=== PATIENT | female | born 1995 | race Caucasian/White ===

== ENCOUNTER 2016-05-23 23:46 | Emergency (ER) | payer OTHER ==
[~2016-05-23] VITALS: Ht 162.6 cm; Wt 54.0 kg
[~2016-05-23 23:46] MED LIST: ZOLO20CO PO
[2016-05-24 00:32] VITALS: BP 121/89; PULSE 92; RESP 20; TEMP 98.2; O2SAT 100
[2016-05-24] MEDS ORDERED: SODIUM CHLORIDE 0.9% FLUSH 5 ML FLUSH IVF PRN (02:00)
[2016-05-24] MEDS ORDERED: oxyCODONE/ACETAMINOPHEN 5 MG/325 MG TAB PO ONE (02:00)
[2016-05-24] MEDS ORDERED: ALBUAER3 INH (03:04)
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
[2016-05-24] MEDS ORDERED: OCEA0.653 EACH NARE (03:53)
[2016-05-24 04:42] VITALS: BP 118/72
== END 2016-05-24 04:49 | disposition home or self-care (01) ==
LOC: PHED 23:46
DX: R05 Cough (principal); S60.221A Contusion of right hand, initial encounter; F41.8 Other specified anxiety disorders; J32.2 Chronic ethmoidal sinusitis; Y04.0XXA Assault by unarmed brawl or fight, initial encounter; Y93.9 Activity, unspecified; Y92.9 Unspecified place or not applicable; Y99.9 Unspecified external cause status
CPT/HCPCS: 70450; 70486; 71010; 72125; 87804

== ENCOUNTER 2016-06-10 19:04 | Emergency (ER) | payer OTHER ==
[~2016-06-10 19:04] MED LIST changes: +ALBUAER3 INH; +OCEA0.653 EACH NARE
[2016-06-10 19:05] VITALS: BP 190/90; PULSE 70; RESP 20; TEMP 97.4; O2SAT 94
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
[2016-06-11] MEDS ORDERED: SODIUM CHLOR 0.9% 1000 ML INJ 1,000 ML IV SCH (00:03)
[2016-06-11] MEDS ORDERED: SODIUM CHLORIDE 0.9% FLUSH 10 ML FLUSH IV FLUSH PRN (00:15)
[2016-06-11] MEDS ORDERED: ONDANSETRON HCL 4 MG/2 ML VIAL IVP ONE (00:15)
[2016-06-11] MEDS ORDERED: HYDROmorphone HCL PF 1 MG/ML VIAL IVS ONE ×2 (00:15)
[2016-06-11 00:29] VITALS: BP 127/77; PULSE 72; RESP 18; O2SAT 100
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
[2016-06-11 00:37] LABS: BASOPHIL # 0.1 TH/MM3 (0-0.2); BASOPHIL % 0.7 % (0.0-2.0); EOSINOPHIL % 0.4 % (0.0-4.0); HEMATOCRIT 42.3 % (35.0-46.0); HEMO FLAGS DIFF FINAL; LYMPH % 21.5 % (9.0-44.0); LYMPHOCYTE # 2.4 TH/MM3 (1.0-4.8); MEAN CELL VOLUME 86.3 FL (80.0-100.0); MEAN CORPUSCULAR HEMOGLOBIN 29.5 PG (27.0-34.0); MEAN CORPUSCULAR HGB CONC 34.1 % (32.0-36.0); MONO % 6.1 % (0.0-8.0); NEUT % 71.3 % (16.0-70.0); PLATELET COUNT 318 TH/MM3 (150-450); RED BLOOD COUNT 4.91 MIL/MM3 (4.00-5.30); WHITE BLOOD COUNT 11.1 TH/MM3 (4.0-11.0)
[2016-06-11 00:42] LABS: BACTERIA, URINE RARE /hpf; BLOOD, URINE NEG (NEG); COMMENT (UR) CULT NOT INDICATED; CULTURE IF INDICATED CULT NOT INDICATED; GLUCOSE,URINE NEG (NEG); KETONE, URINE 40 mg/dL (NEG); MUCUS URINE FEW /lpf (OCC); NITRITE,URINE NEG (NEG); PH, URINE 7.5 (5.0-8.5); SQUAMOUS EPITHELIAL CELL URINE 1 /hpf (0-5); URINE COLOR YELLOW (YELLW/STRAW)
[2016-06-11 00:46] LABS: AMPHETAMINE, URINE POS (NEG); BARBITURATES, URINE NEG (NEG); COCAINE, URINE NEG (NEG)
[2016-06-11 01:00] LABS: BICARBONATE 26.5 MEQ/L (21.0-32.0); POTASSIUM 3.9 MEQ/L (3.5-5.1)
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
[2016-06-11] MEDS ORDERED: ZOFR4TAB3 SL (01:15)
[2016-06-11] MEDS ORDERED: HYDR-3533 PO (01:15)
[2016-06-11 01:45] VITALS: BP 109/61
== END 2016-06-11 02:13 | disposition home or self-care (01) ==
LOC: NEPE 19:04
DX: H93.12 Tinnitus, left ear (principal); R11.2 Nausea with vomiting, unspecified; R51 Headache
CPT/HCPCS: 70480; 80048; 80307; 81001; 84703; 85025; 96361; 96374; 96375; 99284; J1170; J2405; J7030

== ENCOUNTER 2016-10-07 20:06 | Emergency (ER) | payer OTHER ==
[~2016-10-07] VITALS: Ht 165.1 cm; Wt 52.1 kg
[~2016-10-07 20:06] MED LIST changes: +HYDR-3533 PO; -OCEA0.653 EACH NARE; +ZOFR4TAB3 SL; -ZOLO20CO PO
[2016-10-07 20:09] VITALS: BP 132/67; PULSE 97; RESP 18; TEMP 98; O2SAT 99
[2016-10-07] MEDS ORDERED: SODIUM CHLOR 0.9% 1000 ML INJ 1,000 ML IV SCH (20:51)
--- NOTE | 2016-10-07 20:56 | PD ---
HPI Chief Complaint: GI Complaint Time Seen by Provider: 20:38 Travel History International Travel<30 days: No Contact w/Intl Traveler<30days: No Traveled to known affect area: No History of Present Illness HPI SINCE ABOUT 1AM TODAY N/V/D WITH ABD CRAMPING, GENERALIZED, 8/10 WHEN IT OCCURS. PT STATES THAT INITIALLY DIARRHEA WAS NORMAL STOOL COLOR THEN TURNED JELLY LIKE AND REDDISH AND NOW LAST BM WAS WATERY DARK LIKE COFFEE GROUND. PFSH Past Medical History Asthma: Yes Blood Disorders: No Anxiety: Yes Depression: Yes Heart Rhythm Problems: No Cardiovascular Problems: No Chest Pain: No Cystic Fibrosis: No Diabetes: Yes (hypoglycemia) Patient Takes Glucophage: No Diminished Hearing: No Gastrointestinal Disorders: No Headaches: No Hypertension: No Immunizations Current: Yes Migraines: No Seizures: No Sleep Apnea: No Tetanus Vaccination: < 5 Years Influenza Vaccination: No ?: Not LMP: 10/07/16 : 0 Past Surgical History Abdominal Surgery: No Appendectomy: No Cardiac Surgery: No Cholecystectomy: No Ear Surgery: No Endocrine Surgery: No Eye Surgery: No Genitourinary Surgery: No Gynecologic Surgery: No Neurologic Surgery: No Oral Surgery: No Thoracic Surgery: No Tonsillectomy: Yes Other Surgery: No Social History Alcohol Use: No Tobacco Use: No Substance Use: No Allergies-Medications (Allergen,Severity, Reaction): Coded Allergies: Morphine (Verified Allergy, Severe, HIVES AND ITCHING, 10/07/16) Penicillin (Verified Allergy, Intermediate, Hives, 10/07/16) Sulfa (Verified Adverse Reaction, Severe, HIVES, 10/07/16) Uncoded Allergies: [facility] (Adverse Reaction, Severe, Not a patient of mine, 06/22/11) Reported Meds & Prescriptions Reported Meds & Active Scripts Active No Active Prescriptions or Reported Medications Review of Systems Except as stated in HPI: all other systems reviewed are Neg Gastrointestinal: Positive: Nausea, Vomiting, Diarrhea, Abdominal Pain Physical Exam Narrative GENERAL: SKIN: Warm and dry. HEAD: Atraumatic. Normocephalic. EYES: Pupils equal and round. No scleral icterus. No injection or drainage. ENT: No nasal bleeding or discharge. Mucous membranes pink and moist. NECK: Trachea midline. No JVD. CARDIOVASCULAR: Regular rate and rhythm. RESPIRATORY: No accessory muscle use. Clear to auscultation. Breath sounds equal bilaterally. GASTROINTESTINAL: Abdomen soft, non-tender, nondistended. Hepatic and splenic margins not palpable. MUSCULOSKELETAL: Extremities without clubbing, cyanosis, or edema. No obvious deformities. NEUROLOGICAL: Awake and alert. No obvious cranial nerve deficits. Motor grossly within normal limits. Five out of 5 muscle strength in the arms and legs. Normal speech. PSYCHIATRIC: Appropriate mood and affect; insight and judgment normal. Data Data Last Documented VS Vital Signs Date Time Temp Pulse Resp B/P Pulse Ox O2 Delivery O2 Flow Rate FiO2 10/07/16 21:16 18 99 Room Air 10/07/16 20:09 98.0 97 132/67 Orders Complete Blood Count With Diff (10/07/16 20:51) Comprehensive Metabolic Panel (10/07/16 20:51) Lipase (10/07/16 20:51) Urinalysis - C+S If Indicated (10/07/16 20:51) Iv Access Insert/Monitor (10/07/16 20:51) Ecg Monitoring (10/07/16 20:51) Oximetry (10/07/16 20:51) NPO (10/07/16 20:51) Ondansetron Inj (Zofran Inj) (10/07/16 21:00) Metronidazole 500 Mg Inj (Flagyl 500 Mg (10/07/16 21:00) Sodium Chlor 0.9% 1000 Ml Inj (Ns 1000 M (10/07/16 20:51) Sodium Chloride 0.9% Flush (Ns Flush) (10/07/16 21:00) Ed Urine Pregnancytest Poc (10/07/16 20:51) Ondansetron Odt (Zofran Odt) (10/07/16 22:45) Metronidazole (Flagyl) (10/07/16 22:45) Metronidazole 500 Mg Inj (Flagyl 500 Mg (10/07/16 22:45) Ondansetron Inj (Zofran Inj) (10/07/16 22:45) Labs Laboratory Tests Test 10/07/16 10/07/16 20:40 22:40 Urine Color YELLOW Urine Turbidity CLEAR Urine pH 6.0 Urine Specific [place] 1.026 Urine Protein NEG mg/dL Urine Glucose (UA) NEG mg/dL Urine Ketones 15 mg/dL Urine Occult Blood MOD Urine Nitrite NEG Urine Bilirubin NEG Urine Leukocyte Esterase NEG Urine RBC 0-3 /hpf Urine WBC 0-2 /hpf Urine Squamous Epithelial 0-5 /hpf Cells Urine Amorphous Sediment FEW Urine Bacteria FEW /hpf Urine Mucus MANY /lpf Microscopic Urinalysis Comment CULT NOT INDICATED White Blood Count 9.0 TH/MM3 Red Blood Count 5.13 MIL/MM3 Hemoglobin 14.8 GM/DL Hematocrit 44.5 % Mean Corpuscular Volume 86.7 FL Mean Corpuscular Hemoglobin 28.9 PG Mean Corpuscular Hemoglobin 33.3 % Concent Red Cell Distribution Width 11.8 % Platelet Count 254 TH/MM3 Mean Platelet Volume 7.4 FL Neutrophils (%) (Auto) 81.0 % Lymphocytes (%) (Auto) 10.1 % Monocytes (%) (Auto) 6.7 % Eosinophils (%) (Auto) 0.2 % Basophils (%) (Auto) 2.0 % Neutrophils # (Auto) 7.3 TH/MM3 Lymphocytes # (Auto) 0.9 TH/MM3 Monocytes # (Auto) 0.6 TH/MM3 Eosinophils # (Auto) 0.0 TH/MM3 Basophils # (Auto) 0.2 TH/MM3 CBC Comment DIFF FINAL Differential Comment Sodium Level 137 MEQ/L Potassium Level 3.9 MEQ/L Chloride Level 103 MEQ/L Carbon Dioxide Level 27.0 MEQ/L Anion Gap 7 MEQ/L Blood Urea Nitrogen 10 MG/DL Creatinine 0.92 MG/DL Estimat Glomerular Filtration 78 ML/MIN Rate Random Glucose 78 MG/DL Total Bilirubin 0.7 MG/DL Aspartate Amino Transf 20 U/L (AST/SGOT) Alanine Aminotransferase 17 U/L (ALT/SGPT) Alkaline Phosphatase 51 U/L Total Protein 8.3 GM/DL Albumin 4.1 GM/DL Lipase 151 U/L [facility] Medical Decision Making Medical Screen Exam Complete: Yes Emergency Medical Condition: Yes Medical Record Reviewed: Yes Differential Diagnosis BACTERIAL V VIRAL ENTERITIS V ELECTROLYTE V RELATED V LIVER/PANCREAS/ RENAL COMPLICATIONS V DEHYDRATION Narrative Course attempted to treat PATIENT IMMEDIATELY WITH IVF, AND LABS DRAWN TO EVAL FOR COMPLICATIONS, however patient turned out to be a difficult access and required multiple attempts...NORMAL ELECTROLYTES, NEG PREG, NL LFT'S/LIPASE, MILD DEHYDRATION ADDRESSED WITH IVF AND ZOFRAN, ALSO GIVEN FLAGYL IV TO START TREATMENT OF BACTERIAL ENTERITIS Diagnosis Primary Impression: ACUTE BACTERIAL ENTERITIS Patient Instructions: Enteritis (ED), General Instructions Scripts Ondansetron Odt (Zofran Odt)4 Mg Tab4 Mg SL Q6HR PRN (Nausea/Vomiting) #12 TAB Prov:Babak Perdomo MD 10/07/16 Tramadol (Ultram)50 Mg Tab50 Mg PO Q4H PRN (PAIN) #28 TAB Prov:Babak Perdomo MD 10/07/16 Metronidazole (Flagyl)500 Mg [id number] Mg PO TID #21 TAB Prov:Babak Perdomo MD 10/07/16 Ciprofloxacin 500 Mg Ref300 Mg PO BID #14 TAB Prov:Babak Perdoom MD 10/07/16 Disposition: 01 DISCHARGE HOME Condition: Stable Babak Perdomo MD Oct 07, 2016 20:56
[2016-10-07] MEDS ORDERED: metroNIDAZOLE 500 MG INJ 100 ML IV ONE ×2 (21:00→22:45)
[2016-10-07] MEDS ORDERED: ONDANSETRON HCL 4 MG/2 ML VIAL IVP ONE (21:00)
[2016-10-07] MEDS ORDERED: SODIUM CHLORIDE 0.9% FLUSH 10 ML FLUSH IV FLUSH PRN (21:00)
[2016-10-07 21:16] VITALS: RESP 18; O2SAT 99
[2016-10-07 21:19] LABS: GLUCOSE,URINE NEG (NEG); KETONE, URINE 15 mg/dL (NEG); NITRITE,URINE NEG (NEG)
[2016-10-07 21:26] LABS: BLOOD, URINE MOD (NEG)
[2016-10-07 21:27] LABS: URINE COLOR YELLOW (YELLW/STRAW)
[2016-10-07 21:29] LABS: MUCUS URINE MANY /lpf (OCC)
[2016-10-07 21:30] LABS: RBC, URINE 0-3 /hpf (0-3); SQUAMOUS EPITHELIAL CELL URINE 0-5 /hpf (0-5); WBC, URINE 0-2 /hpf (0-5)
[2016-10-07 21:31] LABS: BACTERIA, URINE FEW /hpf; COMMENT (UR) CULT NOT INDICATED; CULTURE IF INDICATED CULT NOT INDICATED
[2016-10-07] MEDS ORDERED: ONDANSETRON HCL 4 MG/2 ML VIAL IV PUSH ONE ×2 (22:45→23:45)
[2016-10-07] MEDS ORDERED: metroNIDAZOLE 500 MG TAB PO ONE (22:45)
[2016-10-07] MEDS ORDERED: ONDANSETRON ODT 4 MG TAB PO ONE (22:45)
[2016-10-07 22:52] LABS: AUTOMATED NEUTROPHIL # 7.3 TH/MM3 (1.8-7.7); BASOPHIL # 0.2 TH/MM3 (0-0.2); EOSINOPHIL % 0.2 % (0.0-4.0); HEMATOCRIT 44.5 % (35.0-46.0); HEMO FLAGS DIFF FINAL; LYMPH % 10.1 % (9.0-44.0); LYMPHOCYTE # 0.9 TH/MM3 (1.0-4.8); MEAN CELL VOLUME 86.7 FL (80.0-100.0); MEAN CORPUSCULAR HEMOGLOBIN 28.9 PG (27.0-34.0); MEAN CORPUSCULAR HGB CONC 33.3 % (32.0-36.0); MONO % 6.7 % (0.0-8.0); PLATELET COUNT 254 TH/MM3 (150-450); RED BLOOD COUNT 5.13 MIL/MM3 (4.00-5.30); RED CELL DISTRIBUTION WIDTH 11.8 % (11.6-17.2)
[2016-10-07 23:01] LABS: CHLORIDE 103 MEQ/L (98-107); POTASSIUM 3.9 MEQ/L (3.5-5.1); SODIUM (NA) 137 MEQ/L (136-145)
[2016-10-07 23:05] LABS: ANION GAP 7 MEQ/L (5-15); BLOOD UREA NITROGEN 10 MG/DL (7-18)
[2016-10-07 23:08] LABS: ALT (GPT) 17 U/L (9-42); AST (GOT) 20 U/L (16-38); GLOMERULAR FILTRATION RATE 78 ML/MIN (>89)
[2016-10-07 23:10] LABS: TOTAL BILIRUBIN ADULT 0.7 MG/DL (0.2-1.0)
[2016-10-07 23:11] LABS: ALKALINE PHOSPHATASE 51 U/L (45-117)
[2016-10-07] MEDS ORDERED: METR-1 PO (23:22)
[2016-10-07] MEDS ORDERED: CIPR500T2 PO (23:22)
[2016-10-07] MEDS ORDERED: ZOFR4TAB3 SL (23:22)
[2016-10-07] MEDS ORDERED: ULTR50TA5 PO (23:22)
[2016-10-07] MEDS ORDERED: KETOROLAC TROMETHAMINE 30 MG/ML (IVP) VIAL IV PUSH ONE (23:45)
[2016-10-07 23:46] VITALS: BP 96/51; PULSE 84; RESP 18; O2SAT 99
[2016-10-07] MEDS ORDERED: ZOFR4TAB PO (23:51)
[2016-10-08 00:31] VITALS: RESP 18
[2016-10-08 00:32] VITALS: BP 104/68
== END 2016-10-08 00:33 | disposition home or self-care (01) ==
LOC: PHED 20:06
DX: A04.9 Bacterial intestinal infection, unspecified (principal); E86.0 Dehydration
CPT/HCPCS: 80053; 81001; 83690; 84703; 85025; 96365; 96375; 96376; 99284; J1885; J2405; J7030

== ENCOUNTER 2016-10-10 12:10 | Emergency (ER) | payer OTHER ==
[~2016-10-10] VITALS: Ht 165.1 cm; Wt 52.0 kg
[~2016-10-10 12:10] MED LIST changes: -ALBUAER3 INH; +CIPR500T2 PO; -HYDR-3533 PO; +METR-1 PO; +ULTR50TA5 PO; +ZOFR4TAB PO
[2016-10-10 12:18] VITALS: BP 106/67; PULSE 57; RESP 17; TEMP 98.3; O2SAT 100
[2016-10-10] MEDS ORDERED: DIATRIZOATE MEGLUM/DIATRIZOATE SOD 9 ML CUP ONE (12:59)
[2016-10-10] MEDS ORDERED: KETOROLAC TROMETHAMINE 30 MG/ML (IVP) VIAL IVP ONE (13:00)
[2016-10-10] MEDS ORDERED: SODIUM CHLORIDE 0.9% FLUSH 10 ML FLUSH IV FLUSH PRN (13:00)
[2016-10-10 13:02] VITALS: O2SAT 97
[2016-10-10 13:16] LABS: AUTOMATED NEUTROPHIL # 2.5 TH/MM3 (1.8-7.7); EOSINOPHIL # 0.1 TH/MM3 (0-0.4); EOSINOPHIL % 2.1 % (0.0-4.0); HEMATOCRIT 39.1 % (35.0-46.0); HEMO FLAGS DIFF FINAL; LYMPH % 31.2 % (9.0-44.0); LYMPHOCYTE # 1.4 TH/MM3 (1.0-4.8); MEAN CELL VOLUME 88.1 FL (80.0-100.0); MEAN CORPUSCULAR HGB CONC 34.1 % (32.0-36.0); MONO % 11.8 % (0.0-8.0); NEUT % 53.9 % (16.0-70.0); PLATELET COUNT 230 TH/MM3 (150-450); RED BLOOD COUNT 4.44 MIL/MM3 (4.00-5.30); RED CELL DISTRIBUTION WIDTH 12.9 % (11.6-17.2); WHITE BLOOD COUNT 4.6 TH/MM3 (4.0-11.0)
[2016-10-10 13:20] LABS: BLOOD, URINE SMALL (NEG); COMMENT (UR) CULT NOT INDICATED; CULTURE IF INDICATED CULT NOT INDICATED; GLUCOSE,URINE NEG (NEG); KETONE, URINE NEG (NEG); NITRITE,URINE NEG (NEG); SQUAMOUS EPITHELIAL CELL URINE <1 /hpf (0-5); URINE COLOR YELLOW (YELLW/STRAW)
[2016-10-10 13:27] LABS: ALT (GPT) 13 U/L (9-42); ANION GAP 9 MEQ/L (5-15); AST (GOT) 15 U/L (16-38); BICARBONATE 24.5 MEQ/L (21.0-32.0); BLOOD UREA NITROGEN 8 MG/DL (7-18); CHLORIDE 108 MEQ/L (98-107); GLOMERULAR FILTRATION RATE 78 ML/MIN (>89); POTASSIUM 3.5 MEQ/L (3.5-5.1); SODIUM (NA) 141 MEQ/L (136-145)
[2016-10-10 13:29] LABS: ALKALINE PHOSPHATASE 37 U/L (45-117); TOTAL BILIRUBIN ADULT 0.2 MG/DL (0.2-1.0)
--- NOTE | 2016-10-10 14:27 | PD ---
HPI Chief Complaint: GI Complaint Time Seen by Provider: 12:49 Travel History International Travel<30 days: No Contact w/Intl Traveler<30days: No Traveled to known affect area: No History of Present Illness HPI Patient is a cantankerous 21-year-old female who presents the emergency department with complaint of abdominal pain. Patient was seen here in our emergency department approximate 4 days ago with complaint of nausea vomiting diarrhea. Laboratory workup was negative, given report a fever at home and possible bloody stool patient was treated for possible bacterial enteritis. She 's been compliant with antibiotics, analgesics and antiemetics at states that she is not feeling better. When I question her, patient states that she has not had any abdominal cramping, but rather sharp pain in her upper abdomen. This is primarily epigastric and radiates throughout the upper abdomen. She denies ever having had any blood in her stool, rather stating that this was mucus. She has had some dark stools, but nothing frankly coffee ground. Patient states that she is having up to 30 episodes of diarrhea a day. No hematemesis. Patient has not had any documented fevers since her previous ED visit, only stating that she has warm and chilled. Patient is upset with the fact that I am questioning her. Stating "it's in my chart can't you just look" . At one point she asked me to transfer her to another emergency department for evaluation. She was able to be verbally de-escalate and by myself and her father tells her "just calm down". PFSH Past Medical History Asthma: Yes Blood Disorders: No Anxiety: Yes Depression: Yes Heart Rhythm Problems: No Cardiovascular Problems: No Chest Pain: No Cystic Fibrosis: No Diabetes: Yes (hypoglycemia) Diminished Hearing: No Gastrointestinal Disorders: No Headaches: No Hypertension: No Immunizations Current: Yes Migraines: No Seizures: No Sleep Apnea: No ?: Not LMP: 10/10/16 : 0 Past Surgical History Abdominal Surgery: No Appendectomy: No Cardiac Surgery: No Cholecystectomy: No Ear Surgery: No Endocrine Surgery: No Eye Surgery: No Genitourinary Surgery: No Gynecologic Surgery: No Neurologic Surgery: No Oral Surgery: No Thoracic Surgery: No Tonsillectomy: Yes Other Surgery: No Social History Alcohol Use: No Tobacco Use: No Substance Use: No Allergies-Medications (Allergen,Severity, Reaction): Coded Allergies: Morphine (Verified Allergy, Severe, HIVES AND ITCHING, 10/10/16) Penicillin (Verified Allergy, Intermediate, Hives, 10/10/16) Sulfa (Verified Adverse Reaction, Severe, HIVES, 10/10/16) Reported Meds & Prescriptions Reported Meds & Active Scripts Active Zofran (Ondansetron HCl) 4 Mg Tab 4 Mg PO Q8HR PRN Ultram (Tramadol HCl) 50 Mg Tab 50 Mg PO Q4H PRN Flagyl (Metronidazole) 500 Mg Tab 500 Mg PO TID Ciprofloxacin (Ciprofloxacin HCl) 500 Mg Tab 500 Mg PO BID Review of Systems ROS Limitations: Uncooperative Except as stated in HPI: all other systems reviewed are Neg Physical Exam Exam Limitations: Uncooperative Narrative GENERAL: Cantankerous female in no acute distress SKIN: Focused skin assessment warm/dry. HEAD: Normocephalic. EYES: No scleral icterus. No injection or drainage. ENT: Mucous membranes pink and moist. NECK: Supple CARDIOVASCULAR: Regular rate and rhythm. RESPIRATORY: No accessory muscle use. GASTROINTESTINAL: Abdomen soft, mild epigastric tenderness to palpation without rebound or guarding MUSCULOSKELETAL: No obvious deformities. No edema. NEUROLOGICAL: Awake and alert. Normal speech. PSYCHIATRIC: Appropriate mood and affect; insight and judgment normal. Data Data Last Documented VS Vital Signs Date Time Temp Pulse Resp B/P Pulse Ox O2 Delivery O2 Flow Rate FiO2 10/10/16 13:02 97 Room Air 10/10/16 12:18 98.3 57 17 106/67 Orders Complete Blood Count With Diff (10/10/16 12:39) Comprehensive Metabolic Panel (10/10/16 12:39) Lipase (10/10/16 12:39) Urinalysis - C+S If Indicated (10/10/16 12:39) Ed Urine Pregnancytest Poc (10/10/16 12:39) Ct Abd/Pel W Iv Contrast(Rout) (10/10/16 12:56) Iv Access Insert/Monitor (10/10/16 12:56) Oximetry (10/10/16 12:56) Sodium Chloride 0.9% Flush (Ns Flush) (10/10/16 13:00) Ketorolac Inj (Toradol Inj) (10/10/16 13:00) Diatrizoate Liq ( Gastroview Liq) (10/10/16 12:59) Oral Contrast - Adult (10/10/16 13:02) Iohexol 350 Inj (Omnipaque 350 Inj) (10/10/16 15:50) Labs Laboratory Tests Test 10/10/16 12:45 White Blood Count 4.6 TH/MM3 Red Blood Count 4.44 MIL/MM3 Hemoglobin 13.3 GM/DL Hematocrit 39.1 % Mean Corpuscular Volume 88.1 FL Mean Corpuscular Hemoglobin 30.0 PG Mean Corpuscular Hemoglobin 34.1 % Concent Red Cell Distribution Width 12.9 % Platelet Count 230 TH/MM3 Mean Platelet Volume 7.5 FL Neutrophils (%) (Auto) 53.9 % Lymphocytes (%) (Auto) 31.2 % Monocytes (%) (Auto) 11.8 % Eosinophils (%) (Auto) 2.1 % Basophils (%) (Auto) 1.0 % Neutrophils # (Auto) 2.5 TH/MM3 Lymphocytes # (Auto) 1.4 TH/MM3 Monocytes # (Auto) 0.5 TH/MM3 Eosinophils # (Auto) 0.1 TH/MM3 Basophils # (Auto) 0.0 TH/MM3 CBC Comment DIFF FINAL Differential Comment Urine Color YELLOW Urine Turbidity CLEAR Urine pH 8.0 Urine Specific [place] 1.006 Urine Protein NEG mg/dL Urine Glucose (UA) NEG mg/dL Urine Ketones NEG mg/dL Urine Occult Blood SMALL Urine Nitrite NEG Urine Bilirubin NEG Urine Urobilinogen LESS THAN 2.0 MG/DL Urine Leukocyte Esterase NEG Urine RBC 46 /hpf Urine WBC 1 /hpf Urine Squamous Epithelial <1 /hpf Cells Microscopic Urinalysis Comment CULT NOT INDICATED Sodium Level 141 MEQ/L Potassium Level 3.5 MEQ/L Chloride Level 108 MEQ/L Carbon Dioxide Level 24.5 MEQ/L Anion Gap 9 MEQ/L Blood Urea Nitrogen 8 MG/DL Creatinine 0.92 MG/DL Estimat Glomerular Filtration 78 ML/MIN Rate Random Glucose 89 MG/DL Calcium Level 8.6 MG/DL Total Bilirubin 0.2 MG/DL Aspartate Amino Transf 15 U/L (AST/SGOT) Alanine Aminotransferase 13 U/L (ALT/SGPT) Alkaline Phosphatase 37 U/L Total Protein 7.3 GM/DL Albumin 3.6 GM/DL Lipase 154 U/L [facility] Medical Decision Making Medical Screen Exam Complete: Yes Emergency Medical Condition: Yes Medical Record Reviewed: Yes Differential Diagnosis 21-year-old female here with approximately 6 days of sharp upper epigastric abdominal pain radiating throughout the abdomen with nausea vomiting and reportedly 30 episodes of diarrhea per day. Not improved with antibiotics prescribed by previous ED visit for possible bacterial enteritis. Differential includes gastritis, pancreatitis, hepatobiliary pathology, peptic ulcer disease , inflammatory bowel disease, irritable bowel disease, bacterial versus viral enteritis, antibiotic associated/induced diarrhea. Narrative Course Patient placed on monitor, IV established and blood obtained. Given 30 mg Toradol for pain. Patient is well-appearing, moist mucous membranes. I truly doubt she is having 30 episodes of diarrhea per day. While in the emergency Department patient was never observed to use the restroom. CBC, CMP, lipase, urinalysis and urine test were all unremarkable. CT of the abdomen and pelvis showed small amount of free fluid in the cul-de-sac. Patient will be started on probiotics for home and given trial of antacids for possible gastritis given epigastric abdominal pain. Diagnosis Primary Impression: Epigastric abdominal pain Additional Impressions: Gastritis Qualified Code: K29.00 - Acute gastritis without hemorrhage, unspecified gastritis type Nausea vomiting and diarrhea Referrals: Chandu Pozo MD call for appointment Precipitate Washer call for appointment Additional Instructions: Omeprazole as prescribed for antacid. Phenergan as needed for nausea, vomiting. Probiotic as prescribed. You may also considering taking Imodium as a antidiarrheal [id number]. Follow-up with GI physician as discussed. Med/Other Pt SpecificInfo: Prescription(s) given Scripts Omeprazole 40 Mg Cap40 Mg PO DAILY #30 CAP Ref 0 Prov:Nicolette Alcantara MD 10/10/16 Promethazine (Phenergan)25 Mg Athtxp29 Mg PO Q6H PRN (NAUSEA OR VOMITING) #10 TAB Ref 0 Prov:Nicolette Alcantara MD 10/10/16 Lactobacillus Acidophilus (Probiotic)1 Cap Cap2 Cap PO TIDAC #180 CAP Ref 0 Prov:Nicolette Alcantara MD 10/10/16 Disposition: 01 DISCHARGE HOME Condition: Stable Nicolette Alcantara MD Oct 10, 2016 14:27
[2016-10-10] MEDS ORDERED: IOHEXOL 350 MG/ML 10 ML VIAL (for RAD DIAG) IV ONE (15:50)
--- NOTE | 2016-10-10 16:07 | RADRPT ---
EXAM DATE/TIME: 10/10/2016 15:44 [facility] COMPARISON: No previous studies available for comparison. INDICATIONS : Right upper quadrant pain, vomiting,diarrhea. Fever. IV CONTRAST: 63 cc Omnipaque 350 (iohexol) IV ORAL CONTRAST: Prescribed oral contrast ingested. RADIATION DOSE: 4.71 CTDIvol (mGy) MEDICAL HISTORY : Diabetes. SURGICAL HISTORY : None. ENCOUNTER: Initial ACUITY: 4 - 6 days PAIN SCALE: 6/10 LOCATION: Right upper quadrant TECHNIQUE: Volumetric scanning of the abdomen and pelvis was performed. Using automated exposure control and ad justment of the mA and/or kV according to patient size, radiation dose was kept as low as reasonably achievable to obtain optimal diagnostic quality images. DICOM format image data is available electro nically for review and comparison. FINDINGS: LOWER LUNGS: The visualized lower lungs are clear. LIVER: Homogeneous density without lesion. There is no dilation of the biliary tree. No calcified gallston es. SPLEEN: Normal size without lesion. PANCREAS: Within normal limits. KIDNEYS: Normal in size and shape. There is no mass, stone or hydronephrosis. ADRENAL GLANDS: Within normal limits. VASCULAR: There is no aortic aneurysm. BOWEL/MESENTERY: The stomach, small bowel, and colon demonstrate no acute abnormality. There is no free intraperitone al air or fluid. ABDOMINAL WALL: Within normal limits. RETROPERITONEUM: There is no lymphadenopathy. BLADDER: No wall thickening or mass. REPRODUCTIVE: Some free fluid is noted within the cul-de-sac. The uterus and ovaries are unremarkable. INGUINAL: There is no lymphadenopathy or hernia. MUSCULOSKELETAL: Within normal limits for patient age. CONCLUSION: Some free fluid within the cul-de-sac. Rolando Pyle MD on October 10, 2016 at 15:57 Board Certified Radiologist. This report was verified electronically.
[2016-10-10] MEDS ORDERED: LACTCAP8 PO (16:22)
[2016-10-10] MEDS ORDERED: OMEP40CA2 PO (16:22)
[2016-10-10] MEDS ORDERED: PROM25TA10 PO (16:22)
== END 2016-10-10 16:41 | disposition home or self-care (01) ==
LOC: NEPD 12:10
DX: K29.00 Acute gastritis without bleeding (principal); R19.7 Diarrhea, unspecified
CPT/HCPCS: 74177; 80053; 81001; 83690; 84703; 85025; 96374; 99285; J1885; Q9963; Q9967

== ENCOUNTER 2017-03-19 20:04 | Emergency (ER) | payer OTHER ==
[~2017-03-19] VITALS: Ht 160 cm; Wt 50.0 kg
[~2017-03-19 20:04] MED LIST changes: +LACTCAP8 PO; +OMEP40CA2 PO; +PROM25TA10 PO; +TRAM50 PO; -ULTR50TA5 PO; -ZOFR4TAB3 SL
[2017-03-19 20:08] VITALS: BP 120/74; PULSE 109; RESP 20; TEMP 98.7; O2SAT 99
[2017-03-19] MEDS ORDERED: SODIUM CHLOR 0.9% 1000 ML INJ 1,000 ML IV ONE ×2 (20:30)
[2017-03-19] MEDS ORDERED: SODIUM CHLORIDE 0.9% FLUSH 10 ML FLUSH IVF PRN (20:30)
--- NOTE | 2017-03-19 20:43 | PD ---
HPI Chief Complaint: Cold / Flu Symptoms Time Seen by Provider: 20:13 Travel History International Travel<30 days: No Contact w/Intl Traveler<30days: No Traveled to known affect area: No History of Present Illness HPI Patient is a 22-year-old female presenting to the emergency department for evaluation of cough, congestion, fevers, sore throat and body aches. Patient's symptoms started 10 days ago with runny nose and nasal congestion. For the last 3 days she has been running a temp of 102.9 per mom's report. Mother states that she's been giving Motrin around the clock. They went to [facility] yesterday where a chest x-ray and influenza swab was obtained. Patient was negative for influenza and her chest x-ray was reportedly clear. However prescribed Augmentin 500 mg daily. The dose did not appear to be correct so they called [facility] and was told that she needed to be reevaluated to obtain the appropriate prescription. As one of the reasons for the presenting complaint today additionally she reports feeling worse. The symptoms started gradually, again exacerbating approximately 2-3 days ago. She denies any abdominal pain, nausea, vomiting, chest pain, shortness of breath. She states her throat is sore from coughing in her sputum is yellow green and at times is streaked with blood. PFSH Past Medical History Asthma: Yes Anxiety: Yes Depression: Yes Cardiovascular Problems: Yes (P WAVE ABNORMALITY) Diabetes: Yes (hypoglycemia) Immunizations Current: Yes ?: Not LMP: 12-12-17 : 0 Past Surgical History Abdominal Surgery: No Appendectomy: No Cardiac Surgery: No Cholecystectomy: No Ear Surgery: No Endocrine Surgery: No Eye Surgery: No Genitourinary Surgery: No Gynecologic Surgery: No Neurologic Surgery: No Oral Surgery: No Thoracic Surgery: No Tonsillectomy: Yes Other Surgery: No Social History Alcohol Use: No Tobacco Use: No Substance Use: No Allergies-Medications (Allergen,Severity, Reaction): Coded Allergies: morphine (Unverified Allergy, Severe, HIVES AND ITCHING, 03/19/17) penicillin G (Unverified Allergy, Intermediate, Hives, 03/19/17) Sulfa (Sulfonamide Antibiotics) (Unverified Adverse Reaction, Severe, HIVES, 03/19/17) Reported Meds & Prescriptions Reported Meds & Active Scripts Active Naproxen 500 Mg Tab 500 Mg PO BID PRN Promethazine-Codeine Liq 6.25-10 Mg/5 Ml Syrp 5 Ml PO Q6H PRN Augmentin (Amoxicillin-Clavulanate) 875-125 Mg Tab 1 Tab PO BID 7 Days Review of Systems Except as stated in HPI: all other systems reviewed are Neg General / Constitutional: Positive: Fever, Chills HENT: Positive: Headaches, Sore Throat, Congestion Cardiovascular: Positive: Tachycardia, No: Chest Pain or Discomfort Respiratory: Positive: Cough, No: Shortness of Breath Gastrointestinal: No: Nausea, Vomiting, Abdominal Pain Genitourinary: No: Dysuria Musculoskeletal: Positive: Myalgias Neurologic: Positive: Weakness Physical Exam Narrative GENERAL: Well-developed, well-nourished, alert acutely ill-appearing female. SKIN: Warm and dry. HEAD: Atraumatic. Normocephalic. EYES: Pupils equal and round. No scleral icterus. No injection or drainage. ENT: No nasal bleeding or discharge. Mucous membranes pink and moist. Posterior pharynx a cobblestone appearance. NECK: Trachea midline. No JVD. CARDIOVASCULAR: Tachycardic RESPIRATORY: No accessory muscle use. Clear to auscultation. Breath sounds equal bilaterally. GASTROINTESTINAL: Abdomen soft, non-tender, nondistended. Hepatic and splenic margins not palpable. MUSCULOSKELETAL: Extremities without clubbing, cyanosis, or edema. No obvious deformities. NEUROLOGICAL: Awake and alert. No obvious cranial nerve deficits. Motor grossly within normal limits. Five out of 5 muscle strength in the arms and legs. Normal speech. PSYCHIATRIC: Appropriate mood and affect; insight and judgment normal. Data Data Last Documented VS Vital Signs Date Time Temp Pulse Resp B/P (MAP) Pulse Ox O2 Delivery O2 Flow Rate FiO2 03/19/17 23:19 88 18 99 03/19/17 23:11 Room Air 03/19/17 20:08 98.7 Orders Orders Complete Blood Count With Diff (03/19/17 20:20) Basic Metabolic Panel (Bmp) (03/19/17 20:20) Group A Rapid Strep Screen (03/19/17 20:20) Iv Access Insert/Monitor (03/19/17 20:20) Oximetry (03/19/17 20:20) Sodium Chloride 0.9% Flush (Ns Flush) (03/19/17 20:30) Sodium Chlor 0.9% 1000 Ml Inj (Ns 1000 M (03/19/17 20:30) Sodium Chlor 0.9% 1000 Ml Inj (Ns 1000 M (03/19/17 20:30) Sepsis Workup Initiated (03/19/17 ) Lactic Acid Sepsis Protocol (03/19/17 20:22) Alprazolam (Xanax) (03/19/17 20:45) Strep Culture (Group A) (03/19/17 20:41) Ketorolac Inj (Toradol Inj) (03/19/17 22:30) Monoscreen (03/19/17 22:41) Ed Discharge Order (03/19/17 22:41) Labs Laboratory Tests Test 03/19/17 21:20 03/19/17 21:50 03/19/17 23:00 White Blood Count 2.8 TH/MM3 Red Blood Count 4.59 MIL/MM3 Hemoglobin 13.6 GM/DL Hematocrit 40.1 % Mean Corpuscular Volume 87.3 FL Mean Corpuscular Hemoglobin 29.5 PG Mean Corpuscular Hemoglobin Concent 33.8 % Red Cell Distribution Width 11.8 % Platelet Count 158 TH/MM3 Mean Platelet Volume 8.2 FL CBC Comment AUTO DIFF Differential Total Cells Counted 100 Neutrophils % (Manual) 51 % Band Neutrophils % 7 % Lymphocytes % 26 % Monocytes % 16 % Neutrophils # (Manual) 1.6 TH/MM3 Differential Comment FINAL DIFF MANUAL Platelet Estimate NORMAL Platelet Morphology Comment NORMAL Red Cell Morphology Comment NORMAL Blood Urea Nitrogen 11 MG/DL Creatinine 0.93 MG/DL Random Glucose 85 MG/DL Calcium Level 8.7 MG/DL Sodium Level 135 MEQ/L Potassium Level 3.7 MEQ/L Chloride Level 103 MEQ/L Carbon Dioxide Level 23.3 MEQ/L Anion Gap 9 MEQ/L Estimat Glomerular Filtration Rate 76 ML/MIN Lactic Acid Level 1.1 mmol/L Monoscreen NEG MDM Medical Decision Making Medical Screen Exam Complete: Yes Emergency Medical Condition: Yes Interpretation(s) Vital Signs Date Time Temp Pulse Resp B/P (MAP) Pulse Ox O2 Delivery O2 Flow Rate FiO2 03/19/17 20:08 98.7 109 20 120/74 (89) 99 Differential Diagnosis Viral syndrome versus UTI versus pneumonia versus sepsis versus other Narrative Course Patient is a 22-year-old female presenting for evaluation of fever and flulike symptoms. Her symptoms started 10 days ago become progressively worse 2-3 days ago. She was evaluated for hospital yesterday and was diagnosed with bronchitis but prescribed the Augmentin with the wrong frequency. Mother states that she had a fever of 102 prior to arrival, she is tachycardic on arrival. Labs and imaging ordered and pending. Patient continues to be extremely anxious regarding IV. She was offered Xanax but declined. Care of patient transferred to my attending physician who will determine patient 's disposition. Scripts Naproxen (Naproxen) 500 Mg Tab 500 MG PO BID Y for PAIN SCALE 4 TO 10, #20 TAB 0 Refills Prov: Krys Kearney MD 03/19/17 Promethazine-Codeine Liq (Promethazine-Codeine Liq) 6.25-10 Mg/5 Ml Syrp 5 ML PO Q6H Y for COUGH AND/OR COLD SYMPTOMS, #60 ML 0 Refills Prov: Krys Kearney MD 03/19/17 Amoxicillin-Clavulanate (Augmentin) 875-125 Mg Tab 1 TAB PO BID for Infection for 7 Days, #14 TAB 0 Refills Prov: Krys Kearney MD 03/19/17 Nani Moore Mar 19, 2017 20:43
[2017-03-19] MEDS ORDERED: ALPRAZolam 0.25 MG TAB PO ONE (20:45)
[2017-03-19 21:18] VITALS: RESP 18; O2SAT 98
[2017-03-19 21:21] VITALS: BP 114/84; PULSE 78; RESP 18; O2SAT 100
[2017-03-19 21:40] LABS: HEMATOCRIT 40.1 % (35.0-46.0); HEMOGLOBIN 13.6 GM/DL (11.6-15.3); MEAN CELL VOLUME 87.3 FL (80.0-100.0); MEAN CORPUSCULAR HEMOGLOBIN 29.5 PG (27.0-34.0); MEAN CORPUSCULAR HGB CONC 33.8 % (32.0-36.0); MEAN PLATELET VOLUME 8.2 FL (7.0-11.0); PLATELET COUNT 158 TH/MM3 (150-450); RED BLOOD COUNT 4.59 MIL/MM3 (4.00-5.30); RED CELL DISTRIBUTION WIDTH 11.8 % (11.6-17.2); WHITE BLOOD COUNT 2.8 TH/MM3 (4.0-11.0)
[2017-03-19 21:41] LABS: BICARBONATE 23.3 MEQ/L (21.0-32.0); CALCIUM 8.7 MG/DL (8.5-10.1)
[2017-03-19 21:45] LABS: CREATININE 0.93 MG/DL (0.50-1.00)
[2017-03-19 21:52] LABS: BANDS 7 % (0-6); LYMPHOCYTES 26 % (9-44); MONOCYTES 16 % (0-8); NEUTROPHIL # MANUAL DIFF 1.6 TH/MM3 (1.8-7.7); POLYS (SEG NEUTROPHILS) 51 % (16-70)
[2017-03-19] MEDS ORDERED: KETOROLAC TROMETHAMINE 30 MG/ML (IVP) VIAL IV PUSH ONE (22:30)
[2017-03-19] MEDS ORDERED: NAPR500T2 PO (22:40)
[2017-03-19] MEDS ORDERED: PROM6.256 PO (22:40)
[2017-03-19] MEDS ORDERED: AUGM875T3 PO (22:40)
--- NOTE | 2017-03-19 22:40 | PD ---
Data Data Last Documented VS Vital Signs Date Time Temp Pulse Resp B/P (MAP) Pulse Ox O2 Delivery O2 Flow Rate FiO2 03/19/17 21:21 78 18 114/84 (94) 100 Room Air 03/19/17 20:08 98.7 Orders Orders Complete Blood Count With Diff (03/19/17 20:20) Basic Metabolic Panel (Bmp) (03/19/17 20:20) Group A Rapid Strep Screen (03/19/17 20:20) Iv Access Insert/Monitor (03/19/17 20:20) Oximetry (03/19/17 20:20) Sodium Chloride 0.9% Flush (Ns Flush) (03/19/17 20:30) Sodium Chlor 0.9% 1000 Ml Inj (Ns 1000 M (03/19/17 20:30) Sodium Chlor 0.9% 1000 Ml Inj (Ns 1000 M (03/19/17 20:30) Sepsis Workup Initiated (03/19/17 ) Lactic Acid Sepsis Protocol (03/19/17 20:22) Alprazolam (Xanax) (03/19/17 20:45) Strep Culture (Group A) (03/19/17 20:41) Ketorolac Inj (Toradol Inj) (03/19/17 22:30) Labs Laboratory Tests Test 03/19/17 21:20 03/19/17 21:50 White Blood Count 2.8 TH/MM3 Red Blood Count 4.59 MIL/MM3 Hemoglobin 13.6 GM/DL Hematocrit 40.1 % Mean Corpuscular Volume 87.3 FL Mean Corpuscular Hemoglobin 29.5 PG Mean Corpuscular Hemoglobin Concent 33.8 % Red Cell Distribution Width 11.8 % Platelet Count 158 TH/MM3 Mean Platelet Volume 8.2 FL CBC Comment AUTO DIFF Differential Total Cells Counted 100 Neutrophils % (Manual) 51 % Band Neutrophils % 7 % Lymphocytes % 26 % Monocytes % 16 % Neutrophils # (Manual) 1.6 TH/MM3 Differential Comment FINAL DIFF MANUAL Platelet Estimate NORMAL Platelet Morphology Comment NORMAL Red Cell Morphology Comment NORMAL Blood Urea Nitrogen 11 MG/DL Creatinine 0.93 MG/DL Random Glucose 85 MG/DL Calcium Level 8.7 MG/DL Sodium Level 135 MEQ/L Potassium Level 3.7 MEQ/L Chloride Level 103 MEQ/L Carbon Dioxide Level 23.3 MEQ/L Anion Gap 9 MEQ/L Estimat Glomerular Filtration Rate 76 ML/MIN Lactic Acid Level 1.1 mmol/L [facility] Supervised Visit with ERENDIRA: Yes Interpretation(s) Leukopenia, 7% bandemia, 16% monocytes Electrolytes are reassuring Lactic acid is 1.1 Rapid strep is negative Differential Diagnosis Influenza, pneumonia, bronchitis, strep pharyngitis, mononucleosis Narrative Course This is a 22-year-old female who presents to the emergency department with cough , congestion and sore throat as well as fevers and myalgias. Patient has very significant anxiety and is tearful most of the time here. She was prescribed amoxicillin yesterday by an outside hospital but given his subtherapeutic dose. She is placed on a monitor here and an IV was established. Labs demonstrate some leukopenia, a 7% bandemia 16% monocytes suggestive to me of a viral infection. Her lactic acid is normal. She was given 2 L of IV fluid and Toradol and feels a little bit better. Patient Will be prescribed Augmentin, but was told to delay using it unless she worsens as I suspect this is viral. I will add a Monospot and follow it up, and will prescribe naproxen and phenergan with codeine for symptoms. I think patient is safe for discharge. Diagnosis Primary Impression: Viral syndrome Patient Instructions: General Instructions Additional Instruction: If you develop severe chest pain, shortness of breath, sweating, lightheadedness , dizziness or difficulty breathing return to the emergency department immediately. Followup with your primary care physician in 2-3 days if your symptoms are not resolved. Med/Other Pt SpecificInfo: Prescription(s) given Scripts Naproxen (Naproxen) 500 Mg Tab 500 MG PO BID Y for PAIN SCALE 4 TO 10, #20 TAB 0 Refills Prov: Krys Kearney MD 03/19/17 Promethazine-Codeine Liq (Promethazine-Codeine Liq) 6.25-10 Mg/5 Ml Syrp 5 ML PO Q6H Y for COUGH AND/OR COLD SYMPTOMS, #60 ML 0 Refills Prov: Krys Kearney MD 03/19/17 Amoxicillin-Clavulanate (Augmentin) 875-125 Mg Tab 1 TAB PO BID for Infection for 7 Days, #14 TAB 0 Refills Prov: Krys Kearney MD 03/19/17 Disposition: 01 DISCHARGE HOME Condition: Stable Krys Kearney MD Mar 19, 2017 22:40
[2017-03-19 23:11] VITALS: BP 116/78; PULSE 78; RESP 18; O2SAT 99
[2017-03-20 09:11] LABS: MONOSCREEN NEG (NEG)
== END 2017-03-19 23:20 | disposition home or self-care (01) ==
LOC: PHEFT 20:04 → PHED 23:20
DX: B34.9 Viral infection, unspecified (principal); J45.909 Unspecified asthma, uncomplicated; E11.9 Type 2 diabetes mellitus without complications; F32.9 Major depressive disorder, single episode, unspecified; F41.9 Anxiety disorder, unspecified
CPT/HCPCS: 80048; 83605; 85007; 85027; 86308; 87081; 87880; 96361; 96374; 99284; J1885; J7030

== ENCOUNTER 2017-11-02 13:01 | Inpatient (IN) ==
[2017-11-02] MEDS ORDERED: Sod Chloride 0.9% Inj 1,000 ML IV.SIG ONE (15:39)
[2017-11-02] MEDS ORDERED: Acetaminophen Inj 650 MG/65 ML VIAL IV.SIG ONE (15:39)
--- NOTE | 2017-11-02 16:05 | ED ---
HPI General Chief Complaint: Abdominal Pain Stated Complaint: abd pain Time Seen by Provider: 11/02/17 15:25 History of Present Illness HPI narrative: Tuesday morning the patient went to ER at [facility] for abdominal pain. States that ultrasound showed contracted gallbladder and inflamed kidney with kidney stones. He was discharged with Cipro and pain medication. Also states that the CT scan showed small stones. Went back on Tuesday morning and was told that her kidney and gallbladder were inflamed. She is unsure if they did an ultrasound and or CT at that time. Was told to follow- up with a specialist, but saw her PCP today who advised her to come to [place]. Patient reports right upper quadrant pain, diffuse, 11 out of 10, constant, sharp, no alleviating or aggravating factors. Patient states that she has not had a bowel movement in 4 days and has decreased flatus. Reporting weight loss and nausea and vomiting. He denies fever, dysuria, vaginal discharge. Menstrual period was October 17 and she is sexually active last sex couple weeks ago he was protected and no history of any STDs. Related Data Home Medications Medication Instructions Recorded Confirmed No Known Home Medications 11/02/17 11/02/17 Allergies Allergy/AdvReac Type Severity Reaction Status Date / Time morphine Allergy Severe HIVES AND Verified 11/02/17 13:18 ITCHING penicillin G Allergy Intermediate Hives Verified 11/02/17 13:18 Sulfa (Sulfonamide AdvReac Severe HIVES Verified 11/02/17 13:18 Antibiotics) Review of Systems ROS: all other systems reviewed are negative [facility] Family History Family History Other Diabetes mellitus Social History Social History Substance History: No History of Abuse Smoking Status: Unknown if ever smoked How Often Do You Have a Drink Containing Alcohol: Unable to Obtain Recent Travel in [facility] within the Last 8 Weeks: No Recent Out of Country Travel within the Last 8 Weeks: No Immunization History Tetanus Immunization: Unsure Exam Narrative Exam Narrative: GENERAL: Positive discomfort from pain SKIN: Focused skin assessment warm/dry. HEAD: Atraumatic. Normocephalic. EYES: Pupils equal and round. No scleral icterus. No injection or drainage. ENT: No nasal bleeding or discharge. Mucous membranes pink and moist. NECK: Trachea midline. No JVD. CARDIOVASCULAR: Regular rate and rhythm. No murmur appreciated. RESPIRATORY: No accessory muscle use. Clear to auscultation. Breath sounds equal bilaterally. GASTROINTESTINAL: Abdomen soft, diffusely tender, nondistended. Hepatic and splenic margins not palpable. MUSCULOSKELETAL: No obvious deformities. No clubbing. No cyanosis. No edema. NEUROLOGICAL: Awake and alert. No obvious cranial nerve deficits. Motor grossly within normal limits. Normal speech. PSYCHIATRIC: Appropriate mood and affect; insight and judgment normal. Course Reevaluation(s) Reevaluation #1: Patient is still in pain. Will admit for biliary colic. She will require surgical consultation. Time: 22:46 Initial Documented Vital Signs Temperature 98.3 F 11/02/17 13:13 Pulse Rate 83 11/02/17 13:13 Respiratory Rate 16 11/02/17 13:13 Blood Pressure 118/67 11/02/17 13:13 Pulse Oximetry 100 11/02/17 13:13 Last Documented Vital Signs Temperature 98.3 F 11/02/17 13:13 Pulse Rate 68 11/03/17 00:15 Respiratory Rate 18 11/03/17 00:15 Blood Pressure 108/77 11/03/17 00:15 Pulse Oximetry 100 11/03/17 00:15 Sign Out Sign Out Data: Patient Sign Out occurred on 11/02/17 at 19:02. Patient's care was discussed, and care was transferred from Laurie Musa MD to Dandre Narvaez DO. Sign Out Comment: Patient will be signed out for lactic acid, u/s results, and reassessment. Last updated by Laurie Musa MD at 11/02/17 18:59 Medical Decision Making MDM Narrative Medical decision making narrative: Patient presents to the emergency department abdominal pain. Patient placed on cardiac exercise physiologist, continuous pulse ox, and IV access obtained. Ultrasound, CT, labs, 1 L IV normal saline, 4 mg IV Zofran, 650 mg IV Tylenol ordered. 1630: patient requesting pain meds, states sh can tolerate dilaudid, will give 1mg IV dilaudid. Labs: Leukocytosis, + hematuria, glucose, T bili slightly increased CT: CONCLUSION:1. No abnormality is identified to explain the right flank pain. There is a questionable punctate nonobstructing left upper renal stone. No right renal stones are identified.2. There is a small volume of free fluid within the pelvis. Although nonspecific this may be physiologic. Please note that the appendix is not visualized.3. Prominent stool throughout the colon.-> Patient request enema in ER, will give fleet enema 1845: Patient given enema and had a small bowel movement. Awaiitng u/s results, will be signed out to oncdimitrios RAZO. Patient with persistent biliary colic. She may need an ERCP. White count without any signs of urinary tract infection she is afebrile hemodynamically stable alert and oriented. No lactic acidosis. Cultures were obtained and she was started on cefepime. Medical Screen Exam Complete: Yes Emergency Medical Condition: Yes Differential Diagnosis Differential Diagnosis: , cholecystitis, cholelithiasis, kidney stones , UTI, pyelonephritis POC Test Results POC Urine Results: Negative Lab Data Result diagrams: 11/02/17 16:00 11/02/17 16:00 Lab Results 11/02/17 11/02/17 11/02/17 Range/Units 16:00 16:00 16:00 WBC 15.0 H (4.0-11.0) th/mm3 RBC 4.93 (4.00-5.30) mil/mm3 Hgb 15.3 (11.6-15.3) gm/dL Hct 43.5 (35.0-46.0) % MCV 88.3 (80.0-100.0) fL MCH 31.1 (27.0-34.0) pg MCHC 35.2 (32.0-36.0) % RDW 12.4 (11.6-17.2) % Plt Count 223 (150-450) th/mm3 MPV 7.9 (7.0-11.0) fL Neut % (Auto) 95.3 H (16.0-70.0) % Lymph % (Auto) 2.2 L (9.0-44.0) % Benson % (Auto) 2.4 (0.0-8.0) % Eos % (Auto) 0.0 (0.0-4.0) % Baso % (Auto) 0.1 (0.0-2.0) % Neut # (Auto) 14.3 H (1.8-7.7) th/mm3 Lymph # (Auto) 0.3 L (1.0-4.8) th/mm3 Benson # (Auto) 0.4 (0.0-0.9) th/mm3 Eos # (Auto) 0.0 (0.0-0.4) th/mm3 Baso # (Auto) 0.0 (0.0-0.2) th/mm3 WBC Differential . Differential Comment Auto diff final PT (9.8-11.6) sec INR Ratio APTT (24.3-30.1) sec Sodium 137 (136-145) meq/L Potassium 4.0 (3.5-5.1) meq/L Chloride 104 (98-107) meq/L Carbon Dioxide 23.5 (21.0-32.0) meq/L Anion Gap 10 (5-15) meq/L BUN 10 (7-18) mg/dL Creatinine 0.94 (0.50-1.00) mg/dL Estimated GFR 75 L (>89) mL/min Random Glucose 108 H (74-106) mg/dL Lactic Acid (0.4-2.0) mmol/L Calcium 9.1 (8.5-10.1) mg/dL Total Bilirubin 1.1 H (0.2-1.0) mg/dL AST 15 (15-37) U/L ALT 19 (10-53) U/L Alkaline Phosphatase 42 L (45-117) U/L Total Protein 8.4 H (6.4-8.2) g/dL Albumin 4.4 (3.4-5.0) g/dL Lipase 80 (73-393) U/L Urine Color Yellow (Yellw/Straw) Urine Clarity Clear (Clear) Urine pH 5.0 (5.0-8.5) Ur Specific [place] 1.016 (1.002-1.035) Urine Protein Negative (Neg-Trace) mg/dL Urine Glucose (UA) Negative (Negative) mg/dL Urine Ketones 20 (Negative) mg/dL Urine Occult Blood Moderate H (Negative) Urine Nitrate Negative (Negative) Urine Bilirubin Negative (Negative) Urine Urobilinogen Less than 2 (Less than 2) mg/dL Ur Leukocyte Esterase Negative (Negative) Urine RBC 16 H (0-3) /hpf Urine WBC 4 (0-5) /hpf Ur Squamous Epith Cells <1 (0-5) /hpf Urine Mucus Few H (Occasional) /lpf Micro UA Comment Culture not ind Ur Microscopic Review Not Reportable Urine Culture Comments Culture not ind 11/02/17 11/02/17 Range/Units 16:00 21:39 WBC (4.0-11.0) th/mm3 RBC (4.00-5.30) mil/mm3 Hgb (11.6-15.3) gm/dL Hct (35.0-46.0) % MCV (80.0-100.0) fL MCH (27.0-34.0) pg MCHC (32.0-36.0) % RDW (11.6-17.2) % Plt Count (150-450) th/mm3 MPV (7.0-11.0) fL Neut % (Auto) (16.0-70.0) % Lymph % (Auto) (9.0-44.0) % Benson % (Auto) (0.0-8.0) % Eos % (Auto) (0.0-4.0) % Baso % (Auto) (0.0-2.0) % Neut # (Auto) (1.8-7.7) th/mm3 Lymph # (Auto) (1.0-4.8) th/mm3 Benson # (Auto) (0.0-0.9) th/mm3 Eos # (Auto) (0.0-0.4) th/mm3 Baso # (Auto) (0.0-0.2) th/mm3 WBC Differential Differential Comment PT 11.4 (9.8-11.6) sec INR 1.1 Ratio APTT 29.0 (24.3-30.1) sec Sodium (136-145) meq/L Potassium (3.5-5.1) meq/L Chloride (98-107) meq/L Carbon Dioxide (21.0-32.0) meq/L Anion Gap (5-15) meq/L BUN (7-18) mg/dL Creatinine (0.50-1.00) mg/dL Estimated GFR (>89) mL/min Random Glucose (74-106) mg/dL Lactic Acid 1.2 (0.4-2.0) mmol/L Calcium (8.5-10.1) mg/dL Total Bilirubin (0.2-1.0) mg/dL AST (15-37) U/L ALT (10-53) U/L Alkaline Phosphatase (45-117) U/L Total Protein (6.4-8.2) g/dL Albumin (3.4-5.0) g/dL Lipase (73-393) U/L Urine Color (Yellw/Straw) Urine Clarity (Clear) Urine pH (5.0-8.5) Ur Specific [place] (1.002-1.035) Urine Protein (Neg-Trace) mg/dL Urine Glucose (UA) (Negative) mg/dL Urine Ketones (Negative) mg/dL Urine Occult Blood (Negative) Urine Nitrate (Negative) Urine Bilirubin (Negative) Urine Urobilinogen (Less than 2) mg/dL Ur Leukocyte Esterase (Negative) Urine RBC (0-3) /hpf Urine WBC (0-5) /hpf Ur Squamous Epith Cells (0-5) /hpf Urine Mucus (Occasional) /lpf Micro UA Comment Ur Microscopic Review Urine Culture Comments Imaging Data Radiologist's impression: Abdomen/Pelvis CT 11/02/17 15:39 CONCLUSION: 1. No abnormality is identified to explain the right flank pain. There is a questionable punctate nonobstructing left upper renal stone. No right renal stones are identified. 2. There is a small volume of free fluid within the pelvis. Although nonspecific this may be physiologic. Please note that the appendix is not visualized. 3. Prominent stool throughout the colon. Gallbladder Ultrasound 11/02/17 15:39 CONCLUSION: 1. Negative abdominal sonogram. Discharge Plan Discharge Disposition Patient Disposition: 30 Still Patient Discharge Condition Condition: Good Discharge Details Diagnosis: Intractable right upper quadrant abdominal pain, Leukocytosis Physicians Team ED Provider: Dandre Narvaez Attending Provider: Sherita Matos Status ED Status: Admitted Observation Patient
[2017-11-02 16:27] LABS: Baso % (Auto) 0.1 % (0.0-2.0); Hematocrit 43.5 % (35.0-46.0); Hemoglobin 15.3 gm/dL (11.6-15.3); Lymph # (Auto) 0.3 th/mm3 (1.0-4.8); Lymph % (Auto) 2.2 % (9.0-44.0); Mean Corpuscular HGB Conc 35.2 % (32.0-36.0); Mean Corpuscular Hemoglobin 31.1 pg (27.0-34.0); Mean Corpuscular Volume 88.3 fL (80.0-100.0); Mean Platelet Volume 7.9 fL (7.0-11.0); Mono # (Auto) 0.4 th/mm3 (0.0-0.9); Mono % (Auto) 2.4 % (0.0-8.0); Neut # (Auto) 14.3 th/mm3 (1.8-7.7); Neut % (Auto) 95.3 % (16.0-70.0); Platelet Count 223 th/mm3 (150-450); Red Blood Count 4.93 mil/mm3 (4.00-5.30); Red Cell Distribution Width 12.4 % (11.6-17.2)
[2017-11-02] MEDS ORDERED: HYDROmorphone PF Inj 2 MG/ML Vial IV.PUSH ONE ×2 (16:29→19:32)
[2017-11-02 16:33] LABS: Bilirubin,Urine Negative (Negative); Clarity,Urine Clear (Clear); Color,Urine Yellow (Yellw/Straw); Glucose,Urine (UA) Negative (Negative); Leukocyte Esterase,Urine Negative (Negative); Mucus,Urine Few /lpf (Occasional); Nitrite,Urine Negative (Negative); Specific Gravity,Urine 1.016 (1.002-1.035); Squamous Epithelial Cell,Urine <1 /hpf (0-5)
[2017-11-02 16:34] LABS: INR 1.1 Ratio; Prothrombin Time 11.4 sec (9.8-11.6)
--- NOTE | 2017-11-02 16:40 | CT ---
EXAM DATE: 11/02/2017 4:21 PM EDT AGE/SEX: 22 years / Female INDICATIONS: Right flank/abdominal pain. Hematuria. CLINICAL DATA: This is the patient's initial encounter. Patient reports that signs and symptoms have been present for 4 - 6 days and indicates a pain score of 8/10. MEDICAL/SURGICAL HISTORY: None. None. RADIATION DOSE: 5.14 CTDI (mGy) COMPARISON: [facility] [place], CT ABDOMEN & PELVIS W CONTRAST, 10/10/2016. . TECHNIQUE: Multiple contiguous axial images were obtained through the abdomen. Images were obtained using multiple row detector helical technique. Using automated exposure control and adjustment of the mA and/or kV according to patient size, radiation dose was kept as low as reasonably achievable to o btain optimal diagnostic quality images. DICOM format image data is available electronically for rev iew and comparison. FINDINGS: Lower chest: No acute abnormality is identified. Hepatobiliary: Liver density is normal. No lesion is seen on this noncontrast examination. No calcifi ed gallstones are present. Kidneys: No hydronephrosis or mass. There is a questionable punctate 2 mm stone in the left upper merry e collecting system. No other renal stones are seen. Adrenal Glands: Within normal limits. Spleen: Within normal limits. Pancreas: Within normal limits. Vascular: The aorta is nonaneurysmal. Bowel/Mesentery: The stomach and small bowel demonstrate no abnormality. No acute colon abnormality i s seen. There is no free intraperitoneal air. There is trace free fluid in the pelvis. The appendix i s not visualized. There is prominent stool throughout the colon. Abdominal Wall: No hernia is visualized. Retroperitoneum: No lymphadenopathy. Bladder: No wall thickening or mass. Reproductive: Within normal limits. Inguinal: No lymphadenopathy or hernia. Musculoskeletal: No acute osseous abnormality is identified. CONCLUSION: 1. No abnormality is identified to explain the right flank pain. There is a questionable punctate no nobstructing left upper renal stone. No right renal stones are identified. 2. There is a small volume of free fluid within the pelvis. Although nonspecific this may be physiol ogic. Please note that the appendix is not visualized. 3. Prominent stool throughout the colon. Electronically signed by: Felix Giordano MD 11/02/2017 4:39 PM EDT
[2017-11-02 16:49] LABS: Alanine Aminotransferase 19 U/L (10-53); Albumin 4.4 g/dL (3.4-5.0); Anion Gap 10 meq/L (5-15); Aspartate Aminotransferase 15 U/L (15-37); Blood Urea Nitrogen 10 mg/dL (7-18); Calcium 9.1 mg/dL (8.5-10.1); Carbon Dioxide 23.5 meq/L (21.0-32.0); Chloride 104 meq/L (98-107); Glomerular Filtration Rate 75 mL/min (>89); Glucose,Random 108 mg/dL (74-106); Lipase 80 U/L (73-393); Sodium 137 meq/L (136-145)
[2017-11-02 16:51] LABS: Alkaline Phosphatase 42 U/L (45-117); Total Protein 8.4 g/dL (6.4-8.2)
[2017-11-02] MEDS ORDERED: Sod Phosphate/Sod Biphosphate (Adult) Enema 133 ML Bottle RECTAL ONE (16:57)
--- NOTE | 2017-11-02 19:57 | US ---
EXAM DATE: 11/02/2017 7:42 PM EDT AGE/SEX: 22 years / Female INDICATIONS: Right sided pain. CLINICAL DATA: This is the patient's initial encounter. Patient reports that signs and symptoms have been present for 1 week and indicates a pain score of 9/10. MEDICAL/SURGICAL HISTORY: . Right sided pain. None. COMPARISON: [facility] [place], CT ABDOMEN & PELVIS W/O CONTRAST, 11/02/2017. . MEASUREMENTS: Liver:__ 14.3 cm. Common Bile Duct:__ 4mm. FINDINGS: Liver: Normal echotexture without focal lesion or ductal dilatation. Portal Vein: Hepatopedal flow seen in portal vein. Common Duct: No intraluminal mass or stone visualized. Gallbladder: Demonstrates no wall thickening or pericholecystic fluid. No stones visualized. Pancreas: The visualized portions are within normal limits Right Kidney: Increased echotexture. No mass or hydronephrosis. CONCLUSION: 1. Negative abdominal sonogram. Electronically signed by: Javi Seth MD 11/02/2017 7:56 PM EDT
[2017-11-02] MEDS ORDERED: Acetaminophen 325 MG Tablet PO PRN (23:45)
[2017-11-02] MEDS ORDERED: Bisacodyl 10 MG Supp RECTAL PRN (23:45)
--- NOTE | 2017-11-03 00:02 | P.HP ---
History of Present Illness Service: [facility] Primary Care Physician: Shannon Moya History of Present Illness: 22-year-old female with no significant past medical history presents to the emergency department for the evaluation of right upper quadrant abdominal pain. The patient reports she has been evaluated at [facility] twice in the past 5 days. The patient reports initially she was diagnosed with kidney stones and given a prescription for ciprofloxacin and Toradol with which she was compliant. She reports despite the Toradol she has continued to have right upper quadrant abdominal pain. She returned to [facility] where repeat workup was within normal limits according to the patient. Was discharged home and told to follow-up with her primary care physician. The patient went to see her PCP earlier today for her continued right upper quadrant abdominal pain. She was sent to the emergency department for further evaluation secondary to her intractable pain. The patient reports nausea and vomiting that began approximately she is tearful on examination. CT of the abdomen/pelvis was unremarkable. Gallbladder ultrasound also unremarkable. The patient's labs are significant only for a white blood cell count of 15 with a left and bandemia. The appendix was not visualized on CT scan. Review of Systems Denies fever or chills Denies blurry vision, otorrhea, rhinorrhea Denies sore throat and cough No chest pain, palpitations No shortness of breath or wheezing Denies muscle pain Denies focal weakness No rashes PMFSH - History History Provided By: Patient, Family Member - Medical / Surgical Hx Neg / Unobtainable Medical Problems Denied: Yes Surgical History: No Previous Surgery - Family History Family History: Family History (Last Updated 11/02/17 @ 23:57 by Symone Beltran MD) Other Diabetes mellitus - Tobacco History Smoking Status: Unknown if ever smoked - Alcohol History How Often Do You Have a Drink Containing Alcohol: Unable to Obtain - Substance Use History Substance History: No History of Abuse - Travel History Recent Travel in the [place] Within the Last 8 Weeks: No Recent Travel Out of the Country Within the Last 8 Weeks: No - Immunization History Tetanus Immunization: Unsure Medications and Allergies Active Medications: Active Medications Acetaminophen (Tylenol) 650 mg PO Q4H PRN PRN Reason: Temp > 100.4 Al Hydroxide/Mg Hydroxide (Milk Of Magnesia Liq) 30 ml PO Q12H PRN PRN Reason: Mild Constipation Bisacodyl (Dulcolax Supp) 10 mg RECTAL DAILY PRN PRN Reason: SEVERE CONSITIPATION Hydromorphone HCl (Dilaudid Pf Inj) 1 mg IV.PUSH Q4H PRN PRN Reason: pain 6-10 Sodium Chloride (Ns Inj) 1,000 mls @ 70 mls/hr IV.CONT .[id number] MONICA Lactulose (Lactulose Liq) 30 ml PO DAILY PRN PRN Reason: SEVERE CONSITIPATION Ondansetron HCl (Zofran Inj) 4 mg IV.PUSH Q6H PRN PRN Reason: NAUSEA OR VOMITING Senna/Docusate Sodium (Neisha-Colace) 1 tab PO BID MONICA Sennosides (Senokot) 17.2 mg PO Q12H PRN PRN Reason: Moderate Constipation Allergies Allergy/AdvReac Type Severity Reaction Status Date / Time morphine Allergy Severe HIVES AND Verified 11/02/17 13:18 ITCHING penicillin G Allergy Intermediate Hives Verified 11/02/17 13:18 Sulfa (Sulfonamide AdvReac Severe HIVES Verified 11/02/17 13:18 Antibiotics) Home Medications Medication Instructions Recorded Confirmed Type No Known Home Medications 11/02/17 11/02/17 History Exam Vital signs: Vital Signs 11/02/17 13:13 11/02/17 17:07 11/02/17 19:53 Temperature 98.3 F Pulse Rate 83 74 Respiratory Rate 16 18 18 Blood Pressure 118/67 115/56 L Pulse Oximetry 100 99 11/02/17 21:27 Temperature Pulse Rate Respiratory Rate 16 Blood Pressure Pulse Oximetry Intake & Output 11/02/17 11/02/17 11/03/17 06:59 18:59 06:59 Intake Total 1065 / 1065 Balance 1065 / 1065 Weight 47.627 kg Intake: IV 1065 / 1065 Ofirmev Inj 650 mg In 65 ml @ 65 / 65 260 mls/hr IV.SIG ONCE ONE Rx#: [id number] NS Inj 1,000 ML @ Wide Open IV. 1000 / 1000 SIG BOLUS ONE Rx#:[id number] Narrative: Gen.: No acute distress Head: Normocephalic. Atraumatic. EENT: Pupils equal round and reactive to light. Nose without drainage. Airway intact. Throat without injection. Cardiovascular: Regular rate and rhythm. No murmurs, rubs or gallops. Respiratory: Lungs clear to auscultation bilaterally. No wheezes or rhonchi. Abdomen: Soft, nondistended. No peritoneal signs. Exquisitely tender to palpation in the right upper quadrant. Musculoskeletal: No gross deformities. No edema. Skin: No obvious rashes or erythema. Neuro: Sensory and motor grossly intact. Cranial nerves II through XII grossly intact. Results - Labs CBC & Chem 7: 11/02/17 16:00 11/02/17 16:00 Labs: Laboratory Results - last 24 hr 11/02/17 11/02/17 11/02/17 16:00 16:00 16:00 WBC 15.0 H RBC 4.93 Hgb 15.3 Hct 43.5 MCV 88.3 MCH 31.1 MCHC 35.2 RDW 12.4 Plt Count 223 MPV 7.9 Neut % (Auto) 95.3 H Lymph % (Auto) 2.2 L [place] % (Auto) 2.4 Eos % (Auto) 0.0 Baso % (Auto) 0.1 Neut # (Auto) 14.3 H Lymph # (Auto) 0.3 L [place] # (Auto) 0.4 Eos # (Auto) 0.0 Baso # (Auto) 0.0 WBC Differential . Differential Comment Auto diff final PT INR APTT Sodium 137 Potassium 4.0 Chloride 104 Carbon Dioxide 23.5 Anion Gap 10 BUN 10 Creatinine 0.94 Estimated GFR 75 L Random Glucose 108 H Lactic Acid Calcium 9.1 Total Bilirubin 1.1 H AST 15 ALT 19 Alkaline Phosphatase 42 L Total Protein 8.4 H Albumin 4.4 Lipase 80 Urine Color Yellow Urine Clarity Clear Urine pH 5.0 Ur Specific [place] 1.016 Urine Protein Negative Urine Glucose (UA) Negative Urine Ketones 20 Urine Occult Blood Moderate H Urine Nitrate Negative Urine Bilirubin Negative Urine Urobilinogen Less than 2 Ur Leukocyte Esterase Negative Urine RBC 16 H Urine WBC 4 Ur Squamous Epith Cells <1 Urine Mucus Few H Micro UA Comment Culture not ind Ur Microscopic Review Not Reportable Urine Culture Comments Culture not ind 11/02/17 11/02/17 16:00 21:39 WBC RBC Hgb Hct MCV MCH MCHC RDW Plt Count MPV Neut % (Auto) Lymph % (Auto) [place] % (Auto) Eos % (Auto) Baso % (Auto) Neut # (Auto) Lymph # (Auto) [place] # (Auto) Eos # (Auto) Baso # (Auto) WBC Differential Differential Comment PT 11.4 INR 1.1 APTT 29.0 Sodium Potassium Chloride Carbon Dioxide Anion Gap BUN Creatinine Estimated GFR Random Glucose Lactic Acid 1.2 Calcium Total Bilirubin AST ALT Alkaline Phosphatase Total Protein Albumin Lipase Urine Color Urine Clarity Urine pH Ur Specific [place] Urine Protein Urine Glucose (UA) Urine Ketones Urine Occult Blood Urine Nitrate Urine Bilirubin Urine Urobilinogen Ur Leukocyte Esterase Urine RBC Urine WBC Ur Squamous Epith Cells Urine Mucus Micro UA Comment Ur Microscopic Review Urine Culture Comments - Imaging Impressions Abdomen/Pelvis CT 11/02/17 15:39 CONCLUSION: 1. No abnormality is identified to explain the right flank pain. There is a questionable punctate nonobstructing left upper renal stone. No right renal stones are identified. 2. There is a small volume of free fluid within the pelvis. Although nonspecific this may be physiologic. Please note that the appendix is not visualized. 3. Prominent stool throughout the colon. Gallbladder Ultrasound 11/02/17 15:39 CONCLUSION: 1. Negative abdominal sonogram. Caprini VTE Risk Assessment Caprini VTE Risk Assessment: No/Low Risk (score <= 1) Caprini Risk Assessment Model: Point Value = 1 Point Value = 2 Point Value = 3 Point Value = 5 Age 41-60 Minor surgery BMI > 25 kg/m2 Swollen legs Varicose veins or History of unexplained or recurrent spontaneous Oral contraceptives or hormone replacement Sepsis (< 1 month) Serious lung disease, including pneumonia (< 1 month) Abnormal pulmonary function Acute myocardial infarction Congestive heart failure (< 1 month) History of inflammatory bowel disease Medical patient at bed rest Age 61-74 Arthroscopic surgery Major open surgery (> 45 min) Laparoscopic surgery (> 45 min) Malignancy Confined to bed (> 72 hours) Immobilizing plaster cast Central venous access Age >= 75 History of VTE Family history of VTE Factor V Leiden Prothrombin [id number] Lupus anticoagulant Anticardiolipin antibodies Elevated serum homocysteine Heparin-induced thrombocytopenia Other congenital or acquired thrombophilia Stroke (< 1 month) Elective arthroplasty Hip, pelvis, or leg fracture Acute spinal cord injury (< 1 month) Prophylaxis Regimen: Total Risk Factor Score Risk Level Prophylaxis Regimen 0-1 Low Early ambulation 2 Moderate Order ONE of the following: *Sequential Compression Device (SCD) *Heparin 5000 units SQ BID 3-4 Higher Order ONE of the following medications: *Heparin 5000 units SQ TID *Enoxaparin/Lovenox 40 mg SQ daily (WT < 150 kg, CrCl > 30 mL/min) *Enoxaparin/Lovenox 30 mg SQ daily (WT < 150 kg, CrCl > 10-29 mL/min) *Enoxaparin/Lovenox 30 mg SQ BID (WT < 150 kg, CrCl > 30 mL/min) AND/OR *Sequential Compression Device (SCD) 5 or more Highest Order ONE of the following medications: *Heparin 5000 units SQ TID (Preferred with Epidurals) *Enoxaparin/Lovenox 40 mg SQ daily (WT < 150 kg, CrCl > 30 mL/min) *Enoxaparin/Lovenox 30 mg SQ daily (WT < 150 kg, CrCl > 10-29 mL/min) *Enoxaparin/Lovenox 30 mg SQ BID (WT < 150 kg, CrCl > 30 mL/min) AND *Sequential Compression Device (SCD) Assessment and Plan - Plan Assessment/plan: 1. Intractable abdominal pain CT the abdomen/pelvis negative for acute process, appendix not visualized Gallbladder ultrasound within normal limits LFTs within normal limits Unclear etiology Supportive care Patient may benefit from gastroenterology consult if symptoms do not improve FEN Clear liquid diet Electrolytes: Monitor and replete as needed NS at 70 cc/hour
[2017-11-03] MEDS: Sod Chloride 0.9% Inj 1,000 ML IV.CONT SCH ×2 (00:14→17:44)
[2017-11-03] MEDS: HYDROmorphone PF Inj 2 MG/ML Vial IV.PUSH PRN ×3 (00:14→20:13)
[2017-11-03] MEDS: Senna/Docusate Sodium 8.6/50 MG Tablet PO SCH ×2 (11:07→21:46)
[2017-11-03 12:30] LABS: Baso # (Auto) 0.1 th/mm3 (0.0-0.2); Baso % (Auto) 0.8 % (0.0-2.0); Eos # (Auto) 0.1 th/mm3 (0.0-0.4); Eos % (Auto) 1.5 % (0.0-4.0); Hematocrit 36.4 % (35.0-46.0); Hemoglobin 12.4 gm/dL (11.6-15.3); Lymph # (Auto) 1.3 th/mm3 (1.0-4.8); Lymph % (Auto) 18.2 % (9.0-44.0); Mean Corpuscular HGB Conc 34.2 % (32.0-36.0); Mean Corpuscular Hemoglobin 30.9 pg (27.0-34.0); Mean Corpuscular Volume 90.5 fL (80.0-100.0); Mean Platelet Volume 7.8 fL (7.0-11.0); Mono # (Auto) 0.5 th/mm3 (0.0-0.9); Mono % (Auto) 7.4 % (0.0-8.0); Neut # (Auto) 5.1 th/mm3 (1.8-7.7); Neut % (Auto) 72.1 % (16.0-70.0); Platelet Count 189 th/mm3 (150-450); Red Blood Count 4.02 mil/mm3 (4.00-5.30); Red Cell Distribution Width 12.6 % (11.6-17.2)
[2017-11-03 12:50] LABS: Alanine Aminotransferase 28 U/L (10-53); Albumin 3.3 g/dL (3.4-5.0); Alkaline Phosphatase 29 U/L (45-117); Anion Gap 8 meq/L (5-15); Aspartate Aminotransferase 22 U/L (15-37); Blood Urea Nitrogen 7 mg/dL (7-18); Calcium 7.7 mg/dL (8.5-10.1); Carbon Dioxide 23.1 meq/L (21.0-32.0); Chloride 109 meq/L (98-107); Glomerular Filtration Rate Greater Than 89 mL/min (>89); Glucose,Random 97 mg/dL (74-106); Potassium 3.7 meq/L (3.5-5.1); Sodium 140 meq/L (136-145); Total Protein 6.5 g/dL (6.4-8.2)
[2017-11-03] MEDS ORDERED: HYDROmorphone PF Inj 2 MG/ML Vial IV.PUSH PRN (13:09)
--- NOTE | 2017-11-03 17:01 | P.PN ---
Subjective Interval history: seen with mother at bedside complains of severe pain rpigastric and right upper quadrant area associated with hiccups and burning pain occurring even trudi within 10-15 seconds of eratingh fenies any fever or chills no urinary symptoms seen 2 separate times as OP in [place]- given tramadol and toradol separately with o relief now slight discomfort relieved sometimes with food no change in menstrual cycle no vaginal discharge bowel movements - regular denies any stress or anxiety Physical Exam Vital signs: Vital Signs 11/02/17 17:07 11/02/17 19:53 11/02/17 21:27 Temperature Pulse Rate 74 Respiratory Rate 18 18 16 Blood Pressure 115/56 L Pulse Oximetry 99 11/03/17 00:15 11/03/17 06:46 11/03/17 07:46 Temperature Pulse Rate 68 67 Respiratory Rate 18 18 17 Blood Pressure 108/77 111/57 L Pulse Oximetry 100 99 11/03/17 08:00 11/03/17 08:47 11/03/17 09:46 Temperature 98.3 F 98.3 F Pulse Rate 82 82 Respiratory Rate 18 16 16 Blood Pressure 120/64 120/64 Pulse Oximetry 100 100 11/03/17 12:00 11/03/17 14:00 11/03/17 16:00 Temperature 98.6 F 98.6 F Pulse Rate 80 78 Respiratory Rate 16 16 16 Blood Pressure Pulse Oximetry 100 100 Intake & Output 11/02/17 11/03/17 11/03/17 18:59 06:59 18:59 Intake Total 1065 / 1065 Balance 1065 / 1065 Weight 47.627 kg 47.627 kg Intake: IV 1065 / 1065 Ofirmev Inj 650 mg In 65 ml @ 65 / 65 260 mls/hr IV.SIG ONCE ONE Rx#: [id number] NS Inj 1,000 ML @ Wide Open IV. 1000 / 1000 SIG BOLUS ONE Rx#:[id number] Other: Date of Last Bowel Movement 11/02/17 Weight On Admission 47.6 kg Narrative: awake and alert, oriented x 3 anicteric gets very emotional and tearful- very frustrated anciteric no nuchalr igdiity lungs- no rales regula rhythma bdomen- soft, + no tenderness, but states pain is deep- inside , good bowel sounds extrmeities no edema Results - Labs CBC & Chem 7: 11/03/17 11:48 11/03/17 11:48 Laboratory Results - last 24 hr 11/02/17 11/03/17 11/03/17 21:39 11:48 11:48 WBC 7.0 D RBC 4.02 Hgb 12.4 D Hct 36.4 MCV 90.5 MCH 30.9 MCHC 34.2 RDW 12.6 Plt Count 189 MPV 7.8 Neut % (Auto) 72.1 H Lymph % (Auto) 18.2 [place] % (Auto) 7.4 Eos % (Auto) 1.5 Baso % (Auto) 0.8 Neut # (Auto) 5.1 Lymph # (Auto) 1.3 [place] # (Auto) 0.5 Eos # (Auto) 0.1 Baso # (Auto) 0.1 WBC Differential . Differential Comment Auto diff final Sodium 140 Potassium 3.7 Chloride 109 H Carbon Dioxide 23.1 Anion Gap 8 BUN 7 Creatinine 0.73 Estimated GFR Greater than 89 Random Glucose 97 Lactic Acid 1.2 Calcium 7.7 L D Total Bilirubin 0.4 AST 22 ALT 28 Alkaline Phosphatase 29 L Total Protein 6.5 D Albumin 3.3 L D Microbiology 11/02/17 23:20 Blood - Peripheral Aerobic Blood Culture - Preliminary No growth in 1 day 11/02/17 23:20 Blood - Peripheral Anaerobic Blood Culture - Preliminary No growth in 1 day 11/02/17 23:15 Blood - Peripheral Aerobic Blood Culture - Preliminary No growth in 1 day 11/02/17 23:15 Blood - Peripheral Anaerobic Blood Culture - Preliminary No growth in 1 day - Imaging Impressions Gallbladder Ultrasound 11/02/17 15:39 CONCLUSION: 1. Negative abdominal sonogram. Assessment and Plan - Plan 22 years old Intractable abdominal pain- epigastric/right upper quadrant, rib cage pain r/o PUD CT the abdomen/pelvis negative for acute process, appendix not visualized Gallbladder ultrasound within normal limits LFTs within normal limits Unclear etiology Supportive care GI consult FEN Clear liquid diet Electrolytes: Monitor and replete as needed NS at 70 cc/hour Microscopic hematuria- asymtpomatic - OP ff up d/w rsult of CT - small stone one the left - hydration Start PPI IV f/e Mom and patient- very frsutrated- seen 2x at [facility] [place]-
[2017-11-03] MEDS: Pantoprazole Inj 40 MG Vial IV.PUSH SCH (17:48)
[2017-11-04] MEDS: HYDROmorphone PF Inj 2 MG/ML Vial IV.PUSH PRN ×4 (00:32→22:33)
[2017-11-04] MEDS ORDERED: Ketorolac Inj 30 MG/ML (IVP) Vial IV.PUSH ONE (00:52)
[2017-11-04] MEDS: Sod Chloride 0.9% Inj 1,000 ML IV.CONT SCH (06:13)
[2017-11-04] MEDS: Senna/Docusate Sodium 8.6/50 MG Tablet PO SCH ×2 (09:12→22:34)
[2017-11-04] MEDS: Polyethylene Glycol 3350 17 GM Packet PO SCH (09:12)
--- NOTE | 2017-11-04 10:26 | P.PNIM ---
Subjective Interval history: Pain remains in this patient. We discussed the timing of nausea vomiting and pain. Patient says that the pain began before nausea vomiting. Currently nausea and vomiting have resolved the pain remains. Pain is in the right upper quadrant. Imaging thus far is negative. Further workup planned. Physical Exam Vital signs: Vital Signs 11/03/17 12:00 11/03/17 14:00 11/03/17 16:00 Temperature 98.6 F 98.6 F Pulse Rate 80 78 Respiratory Rate 16 16 16 Blood Pressure Pulse Oximetry 100 100 11/03/17 20:00 11/03/17 21:22 11/04/17 00:00 Temperature 98.1 F 98.2 F Pulse Rate 56 L 70 Respiratory Rate 20 18 22 Blood Pressure 105/72 101/62 Pulse Oximetry 97 100 11/04/17 01:05 11/04/17 01:52 11/04/17 04:00 Temperature 97.9 F Pulse Rate 64 Respiratory Rate 22 18 20 Blood Pressure 115/61 Pulse Oximetry 100 Intake & Output 11/03/17 11/04/17 11/04/17 18:59 06:59 18:59 Intake Total 1000 / 1000 1250 / 1250 Balance 1000 / 1000 1250 / 1250 Weight 47.627 kg 47.5 kg Intake: IV 1000 / 1000 850 / 850 NS Inj 1,000 ML @ 70 mls/hr IV. 1000 / 1000 850 / 850 CONT .[id number] [facility] Rx#:[id number] Oral 400 / 400 Other: # Voids 5 2 Date of Last Bowel Movement 11/02/17 # [place] 2 Weight On Admission 47.6 kg Narrative: GENERAL: NAD, A&Ox3 HEAD: Normocephalic. NECK: Supple, trachea midline. No lymphadenopathy. EYES: No scleral icterus. No injection or drainage. CARDIOVASCULAR: Regular rate and rhythm without murmurs, gallops, or rubs. RESPIRATORY: Breath sounds equal bilaterally. No accessory muscle use. GASTROINTESTINAL: Abdomen soft, mild tenderness, nondistended. MUSCULOSKELETAL: No cyanosis, or edema. SKIN: Warm and dry. NEURO: No focal neurological deficits. Results - Labs CBC & Chem 7: 11/03/17 11:48 11/03/17 11:48 Laboratory Results - last 24 hr 11/03/17 11/03/17 11:48 11:48 WBC 7.0 D RBC 4.02 Hgb 12.4 D Hct 36.4 MCV 90.5 MCH 30.9 MCHC 34.2 RDW 12.6 Plt Count 189 MPV 7.8 Neut % (Auto) 72.1 H Lymph % (Auto) 18.2 [place] % (Auto) 7.4 Eos % (Auto) 1.5 Baso % (Auto) 0.8 Neut # (Auto) 5.1 Lymph # (Auto) 1.3 [place] # (Auto) 0.5 Eos # (Auto) 0.1 Baso # (Auto) 0.1 WBC Differential . Differential Comment Auto diff final Sodium 140 Potassium 3.7 Chloride 109 H Carbon Dioxide 23.1 Anion Gap 8 BUN 7 Creatinine 0.73 Estimated GFR Greater than 89 Random Glucose 97 Calcium 7.7 L D Total Bilirubin 0.4 AST 22 ALT 28 Alkaline Phosphatase 29 L Total Protein 6.5 D Albumin 3.3 L D Microbiology 11/02/17 23:20 Blood - Peripheral Aerobic Blood Culture - Preliminary No growth in 1 day 11/02/17 23:20 Blood - Peripheral Anaerobic Blood Culture - Preliminary No growth in 1 day 11/02/17 23:15 Blood - Peripheral Aerobic Blood Culture - Preliminary No growth in 1 day 11/02/17 23:15 Blood - Peripheral Anaerobic Blood Culture - Preliminary No growth in 1 day Assessment and Plan - Plan 22 years old admitted secondary to abdominal pain with nausea and vomiting at time of admit Intractable abdominal pain Right upper quadrant pain CT scan and ultrasound are within normal limits HIDA scan pending GI following Evaluate for H pylori Evaluate for ova and parasites Evaluate for porphyrins Serum hCG ordered Autoimmune screening ordered, including SHANNA, RA, cortisol, ESR, and CRP Continue pain treatments as needed IV hydration Clear liquid diet Follow electrolytes Continue IV PPI Hematuria Chronic left nephrolith May be secondary to inflammation versus stone Follow CBC DVT prophylaxis SCDs while in bed
--- NOTE | 2017-11-04 10:33 | P.CONGI ---
History of Present Illness Consult date: 11/05/07 Consult reason: Severe, epigastric and burning right upper quadrant pain, Chief complaint: Intractable Abd Pain, Biliary Colic, Leukocytosis History of Present Illness: This is a slim 22-year-old female who was in her usual state of health up until approximately a week ago and was admitted to [facility] on 11/02/2017. Patient was evaluated in the emergency room for white upper quadrant abdominal pain which she describes as a burning sensation with occasional sharp pains every 15 minutes. Patient also notes some upper abdominal and possible epigastric region pain. Onset of symptoms approximately 1 week ago and patient initially went to [facility] for evaluation. She was found to have left kidney stones and was given Cipro and Toradol and discharged patient was to follow-up with her PCP but states that the abdominal pain worsened and was uncontrolled. After seeing her PCP in the office patient came to [facility] for further evaluation. Currently patient denies any hematemesis or any melena stools no obvious rectal bleeding. Patient did note some diarrhea this week which was new for her 1-2 days, then went back to her norm. Patient denies only occasional social alcohol consumption, (1 beer), and has had no alcohol in the last 2-3 weeks and denies any illicit drugs. Patient denies any family history of colon cancer but states she had an uncle to of pancreatic cancer in his 50s. Patient notes an E. coli of infection 1 year ago, unknown source. Patient did note some nausea and vomiting which still persist over the past week and last vomiting episode was approximately 24 hours ago. Ultrasound gallbladder was unremarkable and liver was normal. CT scan noted left renal stone, prominent positive stool and some free fluid in the pelvic area, nonspecific. On admission bilirubin was 1.1 elevated but within 24 hours was normal at 0.4. Alkaline phosphatase normal at 29, AST 22 normal, ALT 28 normal. Patient pain scale still 8 out of 10, uncontrolled and patient is noted to have some mild to moderate anxiety over current condition. Gastroenterology was consulted to assist with her symptoms of epigastric and right upper quadrant pain. <Mica Brown - Last Filed: 11/04/17 10:33> Review of Systems All other systems reviewed negative except as stated in HPI <Mica Brown - Last Filed: 11/04/17 10:33> PMFSH - History History Provided By: Patient - Medical / Surgical Hx Neg / Unobtainable Medical Problems Denied: Yes - Family History Family History: Family History (Last Updated 11/02/17 @ 23:57 by Symone Beltran MD) Other Diabetes mellitus - Tobacco History Second Hand Smoke Exposure: No Tobacco Use In Past 30 Days: No Smoking Status: Never smoker - Alcohol History How Often Do You Have a Drink Containing Alcohol: 2 to 4 times a month - Substance Use History Substance History: No History of Abuse - Travel History Recent Travel in the [place] Within the Last 8 Weeks: No Recent Travel Out of the Country Within the Last 8 Weeks: No - Immunization History Tetanus Immunization: Unsure <Mica Brown - Last Filed: 11/04/17 10:33> - Family History Family History: Family History (Last Updated 11/02/17 @ 23:57 by Symone Beltran MD) Other Diabetes mellitus <Chandu Pozo - Last Filed: 11/04/17 14:23> Medications and Allergies Active Medications: Active Medications Acetaminophen (Tylenol) 650 mg PO Q4H PRN PRN Reason: Temp > 100.4 Al Hydroxide/Mg Hydroxide (Milk Of Magnesia Liq) 30 ml PO Q12H PRN PRN Reason: Mild Constipation Bisacodyl (Dulcolax Supp) 10 mg RECTAL DAILY PRN PRN Reason: SEVERE CONSITIPATION Hydromorphone HCl (Dilaudid Pf Inj) 0.25 mg IV.PUSH Q4H PRN PRN Reason: pain 6-10 Last Admin: 11/04/17 00:32 Dose: 0.25 mg Sodium Chloride (Ns Inj) 1,000 mls @ 70 mls/hr IV.CONT .[id number] MONICA Last Infusion: 11/04/17 09:15 Dose: 70 mls/hr Lactobacillus Acidophilus (Lactinex) 1 tab PO TID MONICA Lactulose (Lactulose Liq) 30 ml PO DAILY PRN PRN Reason: SEVERE CONSITIPATION Ondansetron HCl (Zofran Inj) 4 mg IV.PUSH Q6H PRN PRN Reason: NAUSEA OR VOMITING Last Admin: 11/03/17 23:55 Dose: 4 mg Pantoprazole Sodium (Protonix Inj) 40 mg IV.PUSH Q24H MONICA Last Admin: 11/03/17 17:48 Dose: 40 mg Polyethylene Glycol (Miralax) 17 gm PO DAILY [facility] Last Admin: 11/04/17 09:12 Dose: 17 gm Senna/Docusate Sodium (Neisha-Colace) 1 tab PO BID [facility] Last Admin: 11/04/17 09:12 Dose: 1 tab Sennosides (Senokot) 17.2 mg PO Q12H PRN PRN Reason: Moderate Constipation <Mica Brown - Last Filed: 11/04/17 10:33> Active Medications: Active Medications Acetaminophen (Tylenol) 650 mg PO Q4H PRN PRN Reason: Temp > 100.4 Al Hydroxide/Mg Hydroxide (Milk Of Magnesia Liq) 30 ml PO Q12H PRN PRN Reason: Mild Constipation Bisacodyl (Dulcolax Supp) 10 mg RECTAL DAILY PRN PRN Reason: SEVERE CONSITIPATION Hydromorphone HCl (Dilaudid Pf Inj) 0.25 mg IV.PUSH Q4H PRN PRN Reason: pain 6-10 Last Admin: 11/04/17 00:32 Dose: 0.25 mg Sodium Chloride (Ns Inj) 1,000 mls @ 70 mls/hr IV.CONT .[id number] [facility] Last Infusion: 11/04/17 09:15 Dose: 70 mls/hr Lactobacillus Acidophilus (Lactinex) 1 tab PO TID [facility] Lactulose (Lactulose Liq) 30 ml PO DAILY PRN PRN Reason: SEVERE CONSITIPATION Ondansetron HCl (Zofran Inj) 4 mg IV.PUSH Q6H PRN PRN Reason: NAUSEA OR VOMITING Last Admin: 11/03/17 23:55 Dose: 4 mg Pantoprazole Sodium (Protonix Inj) 40 mg IV.PUSH Q24H [facility] Last Admin: 11/03/17 17:48 Dose: 40 mg Polyethylene Glycol (Miralax) 17 gm PO DAILY [facility] Last Admin: 11/04/17 09:12 Dose: 17 gm Senna/Docusate Sodium (Neisha-Colace) 1 tab PO BID [facility] Last Admin: 11/04/17 09:12 Dose: 1 tab Sennosides (Senokot) 17.2 mg PO Q12H PRN PRN Reason: Moderate Constipation <Chandu Pozo - Last Filed: 11/04/17 14:23> Allergies Allergy/AdvReac Type Severity Reaction Status Date / Time morphine Allergy Severe HIVES AND Verified 11/02/17 13:18 ITCHING penicillin G Allergy Intermediate Hives Verified 11/02/17 13:18 Sulfa (Sulfonamide AdvReac Severe HIVES Verified 11/02/17 13:18 Antibiotics) Home Medications Medication Instructions Recorded Confirmed Type No Known Home Medications 11/02/17 11/02/17 History Exam Vital signs: Vital Signs 11/03/17 12:00 11/03/17 14:00 11/03/17 16:00 Temperature 98.6 F 98.6 F Pulse Rate 80 78 Respiratory Rate 16 16 16 Blood Pressure Pulse Oximetry 100 100 11/03/17 20:00 11/03/17 21:22 11/04/17 00:00 Temperature 98.1 F 98.2 F Pulse Rate 56 L 70 Respiratory Rate 20 18 22 Blood Pressure 105/72 101/62 Pulse Oximetry 97 100 11/04/17 01:05 11/04/17 01:52 11/04/17 04:00 Temperature 97.9 F Pulse Rate 64 Respiratory Rate 22 18 20 Blood Pressure 115/61 Pulse Oximetry 100 Intake & Output 11/03/17 11/04/17 11/04/17 18:59 06:59 18:59 Intake Total 1000 / 1000 1250 / 1250 Balance 1000 / 1000 1250 / 1250 Weight 47.627 kg 47.5 kg Intake: IV 1000 / 1000 850 / 850 NS Inj 1,000 ML @ 70 mls/hr IV. 1000 / 1000 850 / 850 CONT .[id number] [facility] Rx#:[id number] Oral 400 / 400 Other: # Voids 5 2 Date of Last Bowel Movement 11/02/17 # Emeses 2 Weight On Admission 47.6 kg - Constitutional moderate distress, thin - Routine HEENT Exam Head: Present: normocephalic ENT: Present: mucous membranes moist - Routine Neck Exam Present: supple - Routine Respiratory Exam Present: accessory muscle use (Even, unlabored at rest) - Routine Cardiovascular Exam Present: S1, S2 - Routine Abdominal Exam Present: soft (Flat, no obvious distention, notes no epigastric pain to light palpation, right upper quadrant mild tenderness to light palpation) - Routine Skin Exam Present: intact - Routine Neurological Exam Present: alert <Stephanie,Mica Florence - Last Filed: 11/04/17 10:33> Vital signs: Vital Signs 11/03/17 16:00 11/03/17 20:00 11/03/17 21:22 Temperature 98.6 F 98.1 F Pulse Rate 78 56 L Respiratory Rate 16 20 18 Blood Pressure 105/72 Pulse Oximetry 100 97 11/04/17 00:00 11/04/17 01:05 11/04/17 01:52 Temperature 98.2 F Pulse Rate 70 Respiratory Rate 22 22 18 Blood Pressure 101/62 Pulse Oximetry 100 11/04/17 04:00 11/04/17 08:00 Temperature 97.9 F 98.6 F Pulse Rate 64 60 Respiratory Rate 20 16 Blood Pressure 115/61 101/58 L Pulse Oximetry 100 100 Intake & Output 11/03/17 11/04/17 11/04/17 18:59 06:59 18:59 Intake Total 1000 / 1000 1250 / 1250 Balance 1000 / 1000 1250 / 1250 Weight 47.627 kg 47.5 kg Intake: IV 1000 / 1000 850 / 850 NS Inj 1,000 ML @ 70 mls/hr IV. 1000 / 1000 850 / 850 CONT .[id number] [facility] Rx#:[id number] Oral 400 / 400 Other: # Voids 5 2 Date of Last Bowel Movement 11/02/17 # Emeses 2 Weight On Admission 47.6 kg <Chandu Pozo - Last Filed: 11/04/17 14:23> Results - Labs CBC & Chem 7: 11/03/17 11:48 11/03/17 11:48 Labs: Laboratory Results - last 24 hr 11/03/17 11/03/17 11:48 11:48 WBC 7.0 D RBC 4.02 Hgb 12.4 D Hct 36.4 MCV 90.5 MCH 30.9 MCHC 34.2 RDW 12.6 Plt Count 189 MPV 7.8 Neut % (Auto) 72.1 H Lymph % (Auto) 18.2 [place] % (Auto) 7.4 Eos % (Auto) 1.5 Baso % (Auto) 0.8 Neut # (Auto) 5.1 Lymph # (Auto) 1.3 [place] # (Auto) 0.5 Eos # (Auto) 0.1 Baso # (Auto) 0.1 WBC Differential . Differential Comment Auto diff final Sodium 140 Potassium 3.7 Chloride 109 H Carbon Dioxide 23.1 Anion Gap 8 BUN 7 Creatinine 0.73 Estimated GFR Greater than 89 Random Glucose 97 Calcium 7.7 L D Total Bilirubin 0.4 AST 22 ALT 28 Alkaline Phosphatase 29 L Total Protein 6.5 D Albumin 3.3 L D <BoulderMica M - Last Filed: 11/04/17 10:33> - Labs CBC & Chem 7: 11/03/17 11:48 11/03/17 11:48 Labs: Laboratory Results - last 24 hr 11/04/17 11/04/17 11/04/17 10:35 10:35 10:35 ESR 6 C-Reactive Protein 0.40 H Beta HCG, Qual Cortisol 11.8 Rheumatoid Factor Scrn Negative Rheumatoid Factor Titer Not Reportable 11/04/17 10:35 ESR C-Reactive Protein Beta HCG, Qual Less than 1.0 Cortisol Rheumatoid Factor Scrn Rheumatoid Factor Titer <Chandu Pozo - Last Filed: 11/04/17 14:23> Assessment and Plan (1) Epigastric abdominal pain Status: Acute Code(s): R10.13 - Epigastric pain (2) Intractable right upper quadrant abdominal pain Status: Acute Code(s): R10.11 - Right upper quadrant pain (3) Alternating constipation and diarrhea Status: Acute Code(s): R19.8 - Other specified symptoms and signs involving the digestive system and abdomen (4) Nausea & vomiting Status: Acute Code(s): R11.2 - Nausea with vomiting, unspecified - Plan 22-year-old slim female with onset of right upper quadrant and epigastric abdominal pain 1 week. Patient notes some diarrhea initially for the first couple of days but now CT scan shows prominent stool. Symptoms could be IBS related Gallbladder ultrasound unremarkable liver normal in CT showed left renal stone prominent stool and some mild free fluid in the pelvis, unspecified? Hyperbilirubinemia, initially 1.1 on admission now normalized at 0.4 and 24 hours and normal LFTs normal alkaline phosphatase. Questionable hepatocellular disease although CT of the liver looked normal. Questionable autoimmune, inflammatory, infectious, indications. Epigastric pain initially, describes as a burning sensation, symptoms of nausea and vomiting, no tenderness on palpation no dyspepsia or dysphasia symptoms. Questionable GERD? Right upper quadrant pain, gallbladder ultrasound normal and CT showed prominent stool but no acute liver pancreas or bowel notes. Questionable gallbladder functioning? Autoimmune versus, biliary dyskinesia. Autoimmune labs are pending and ordered per attending. No obvious bleeding Plan Diet per attending, HIDA scan today Monitor patient's labs including hemoglobin and biliary Pain management per attending Antiemetics PPI If HIDA scan is normal, consider EGD/and or colonoscopy to rule out GERD, IBS Further recommendations to follow Patient was seen per myself and Dr. Pozo, note was written on his behalf <Mica Brown - Last Filed: 11/04/17 10:33> (1) Epigastric abdominal pain Status: Acute Code(s): R10.13 - Epigastric pain (2) Intractable right upper quadrant abdominal pain Status: Acute Code(s): R10.11 - Right upper quadrant pain (3) Alternating constipation and diarrhea Status: Acute Code(s): R19.8 - Other specified symptoms and signs involving the digestive system and abdomen (4) Nausea & vomiting Status: Acute Code(s): R11.2 - Nausea with vomiting, unspecified - Attending Attestation Patient seen and examined Agree with above Continue with current supportive care Monitor labs Await HIDA scan but if negative will consider upper endoscopy and maybe even colonoscopy <Chandu Pozo - Last Filed: 11/04/17 14:23>
[2017-11-04] MEDS ORDERED: Sincalide Inj 5 MCG Vial ONE (13:17)
[2017-11-04] MEDS: Lactobacillus Acidophilus/L. Spores Tablet PO SCH ×2 (14:29→17:49)
--- NOTE | 2017-11-04 14:36 | NM ---
EXAM DATE: 11/04/2017 2:00 PM EDT AGE/SEX: 22 years / Female INDICATIONS: Abdominal pain. CLINICAL DATA: This is the patient's initial encounter. Patient reports that signs and symptoms have been present for 1 week and indicates a pain score of 10/10. MEDICAL/SURGICAL HISTORY: None. None. COMPARISON: No prior exams available for comparison. DOSE: 4.4 mCi Tc-99m mebrofenin i.v. Medication: 0.9 mcg Cholecystokinin IV Identical symptomatic response Cholecystokinin was administered by slow infusion over 8 minutes beginning at 70 min. min utes. TECHNIQUE: Following the intravenous administration of radiotracer, dynamic sequential images were pe rformed with continuous acquisition. Time-activity curves were generated. FINDINGS: Hepatic Kinetics: There is prompt uptake of radiotracer in the liver. No focal defects are seen. Ther e is normal rate of washout from the hepatic parenchyma. Biliary Clearance: Activity is first seen in the extrahepatic biliary system at 10 minutes. There is normal excretion into the small bowel. Gallbladder: Activity is first seen in the gallbladder at 30 minutes. Post-CCK: After CCK administration, there is emptying of the gallbladder with a 50% ejection fraction . Common bile duct kinetics are normal and there is no evidence of biliary obstruction. Identical sy mptomatic response after cholecystokinin infusion. Biliary-Enteric Reflux: None observed. CONCLUSION: 1. Unremarkable study. Electronically signed by: Piedad Johnson MD 11/04/2017 2:35 PM EDT
[2017-11-04] MEDS: Pantoprazole Inj 40 MG Vial IV.PUSH SCH (17:49)
[2017-11-05] MEDS: Sod Chloride 0.9% Inj 1,000 ML IV.CONT SCH ×4 (01:00→15:26)
--- NOTE | 2017-11-05 07:28 | P.PNIM ---
Subjective Interval history: Pt seen and examined for f/u RUQ pain. Patient reports a constant, underlying pain in her RUQ that is exacerbated by eating, coughing, and certain positions and associated with nausea and vomiting. She vomited yesterday evening. Her pain is not controlled on PO analgesics. She is not tolerating by mouth. States she hasn't had a significant BM which she attributes to not eating. LMP was 8/ 7. She denies any significant pain in the weeks preceding her menstrual cycle. She is sexually active with one partner and uses protection but hasn't been tested for STDs. Denies vaginal discharge. She reports she was told she would undergo an EGD today. Physical Exam Vital signs: Vital Signs 11/04/17 08:00 11/04/17 15:00 11/04/17 16:00 Temperature 98.6 F 97.9 F Pulse Rate 60 68 Respiratory Rate 16 16 15 Blood Pressure 101/58 L Pulse Oximetry 100 99 11/04/17 19:20 11/05/17 00:00 11/05/17 04:00 Temperature 98.1 F 98 F 98.2 F Pulse Rate 54 L 79 60 Respiratory Rate 20 18 18 Blood Pressure 102/66 118/68 93/50 L Pulse Oximetry 99 100 Intake & Output 11/04/17 11/05/17 11/05/17 18:59 06:59 18:59 Intake Total 1170 / 1170 Balance 1170 / 1170 Weight 46.9 kg Intake: Oral 360 / 360 Other 810 / 810 Other: # Voids 3 Date of Last Bowel Movement 11/04/17 # Emeses 2 Narrative: GENERAL: Thin, pleasant female resting in bed in [facility]. SKIN: Warm and dry. Few tattoos over UE. No jaundice. HEENT: AT/NC. Pupils equal and round. No scleral icterus. MMM. Piercing of nasal septum. NECK: Supple no tender LAD or JVD. HEART: RRR no m/r/g. LUNGS: CTAB without wheezes or crackles. ABDOMEN: +BS, soft, ND. TTP over RUQ. EXTREMITIES: No LE edema. 2+ pedal pulses. NEURO: Awake and alert. Nonfocal. PSYCH: Appropriate mood and affect. Results - Labs CBC & Chem 7: 11/03/17 11:48 11/03/17 11:48 Laboratory Results - last 24 hr 11/04/17 11/04/17 11/04/17 10:35 10:35 10:35 ESR 6 C-Reactive Protein 0.40 H Beta HCG, Qual Cortisol 11.8 Rheumatoid Factor Scrn Negative Rheumatoid Factor Titer Not Reportable 11/04/17 10:35 ESR C-Reactive Protein Beta HCG, Qual Less than 1.0 Cortisol Rheumatoid Factor Scrn Rheumatoid Factor Titer Microbiology 11/02/17 23:20 Blood - Peripheral Aerobic Blood Culture - Preliminary No growth in 2 days 11/02/17 23:20 Blood - Peripheral Anaerobic Blood Culture - Preliminary No growth in 2 days 11/02/17 23:15 Blood - Peripheral Aerobic Blood Culture - Preliminary No growth in 2 days 11/02/17 23:15 Blood - Peripheral Anaerobic Blood Culture - Preliminary No growth in 2 days - Imaging Impressions Bile Acid Absorption NM 11/04/17 00:00 CONCLUSION: 1. Unremarkable study. Assessment and Plan - Assessment (1) Intractable right upper quadrant abdominal pain Code(s): R10.11 - Right upper quadrant pain Status: Acute - Plan 22 year old female with no significant PMH admitted 11/02 for intractable RUQ abdominal pain. 1. RUQ pain - CT A/P with tiny left nonobstructing renal stone, prominent stool in the colon , and small amount of free fluid within the pelvis, otherwise negative for acute process and no abnormality that can account for patient's pain - GB U/S negative (no stones, wall thickening, pericolic fluid) - WBC 15K on admission but has normalized - Mild elevation of TBili on admission but has normalized - LFTs otherwise WNL, lipase and acute phase reactants WNL - Not , no anemia, U/A negative - RF negative, SHANNA and porphyrins pending - Check GC/chlamydia - HIDA with EF 55% but exact pain is reproducible with administration of CCK - IV fluids - Clears as tolerated - PPI - Pain control, requiring IV Dilaudid. Pain exacerbated with PO - GI following, apparently planning for EGD today. Will await results. If negative, will consult general surgery since patient's pain was reproduced during HIDA scan as described above. If her pain improves and she can tolerate some PO, this can likely be evaluated as an outpatient but if patient continues to require IV pain medications and is not eating then will have the general surgeon see her in-house 2. Hematuria - Microscopic hematuria on U/A - Small stone on CT A/P - Will need f/u U/A as outpatient to ensure resolution DVT prophylaxis: SCDs Discussed Condition With: Patient
[2017-11-05] MEDS: Lactobacillus Acidophilus/L. Spores Tablet PO SCH ×3 (08:37→17:08)
[2017-11-05] MEDS: Polyethylene Glycol 3350 17 GM Packet PO SCH (08:37)
[2017-11-05] MEDS: Senna/Docusate Sodium 8.6/50 MG Tablet PO SCH (08:37)
[2017-11-05] MEDS: HYDROmorphone PF Inj 2 MG/ML Vial IV.PUSH PRN ×3 (12:08→22:47)
[2017-11-05] MEDS: Pantoprazole Inj 40 MG Vial IV.PUSH SCH (17:08)
--- NOTE | 2017-11-05 19:55 | P.PNGI ---
Subjective Interval history: Patient laying in bed complaints of nausea and vomiting and some abdominal discomfort but the right upper quadrant abdominal pain seems to be improving Physical Exam Vital signs: Vital Signs 11/05/17 00:00 11/05/17 04:00 11/05/17 08:00 Temperature 98 F 98.2 F 98 F Pulse Rate 79 60 76 Respiratory Rate 18 18 14 Blood Pressure 118/68 93/50 L 106/67 Pulse Oximetry 100 99 11/05/17 12:00 11/05/17 16:50 Temperature 98 F 98.5 F Pulse Rate 72 73 Respiratory Rate 16 20 Blood Pressure 113/73 Pulse Oximetry 100 100 Intake & Output 11/05/17 11/05/17 11/06/17 06:59 18:59 06:59 Intake Total 1170 / 1170 1840 / 1840 Balance 1170 / 1170 1840 / 1840 Weight 46.9 kg Intake: IV 1000 / 1000 NS Inj 1,000 ML @ 70 mls/hr IV. 1000 / 1000 CONT [facility][id number] Rx#:[id number] Oral 360 / 360 840 / 840 Other 810 / 810 Other: # Voids 3 3 Date of Last Bowel Movement 11/04/17 11/04/17 # Emeses 2 3 - Constitutional no acute distress - Routine HEENT Exam Head: Present: normocephalic ENT: Present: mucous membranes moist - Routine Neck Exam Present: supple - Routine Respiratory Exam Present: CTA bilaterally - Routine Cardiovascular Exam Present: RRR - Routine Abdominal Exam Present: soft, tenderness (Mild upper abdominal tenderness no rebound or guarding) - Routine Extremities Exam Absent: cyanosis, clubbing, edema Results - Labs CBC & Chem 7: 11/03/17 11:48 11/03/17 11:48 Laboratory Results - last 24 hr 11/05/17 09:17 Chlam trachomat DNA PCR Not detected N.gonorrhoeae DNA (PCR) Not detected Microbiology 11/02/17 23:20 Blood - Peripheral Aerobic Blood Culture - Preliminary No growth in 3 days 11/02/17 23:20 Blood - Peripheral Anaerobic Blood Culture - Preliminary No growth in 3 days 11/02/17 23:15 Blood - Peripheral Aerobic Blood Culture - Preliminary No growth in 3 days 11/02/17 23:15 Blood - Peripheral Anaerobic Blood Culture - Preliminary No growth in 3 days Assessment and Plan (1) Epigastric abdominal pain Status: Acute Code(s): R10.13 - Epigastric pain (2) Intractable right upper quadrant abdominal pain Status: Acute Code(s): R10.11 - Right upper quadrant pain (3) Alternating constipation and diarrhea Status: Acute Code(s): R19.8 - Other specified symptoms and signs involving the digestive system and abdomen (4) Nausea & vomiting Status: Acute Code(s): R11.2 - Nausea with vomiting, unspecified - Plan 22-year-old slim female with onset of right upper quadrant and epigastric abdominal pain 1 week. Patient notes some diarrhea initially for the first couple of days but now CT scan shows prominent stool. Symptoms could be IBS related Gallbladder ultrasound unremarkable liver normal in CT showed left renal stone prominent stool and some mild free fluid in the pelvis, unspecified? Hyperbilirubinemia, initially 1.1 on admission now normalized at 0.4 and 24 hours and normal LFTs normal alkaline phosphatase. Questionable hepatocellular disease although CT of the liver looked normal. Questionable autoimmune, inflammatory, infectious, indications. Epigastric pain initially, describes as a burning sensation, symptoms of nausea and vomiting, no tenderness on palpation no dyspepsia or dysphasia symptoms. Questionable GERD? Right upper quadrant pain, gallbladder ultrasound normal and CT showed prominent stool but no acute liver pancreas or bowel notes. Questionable gallbladder functioning? Autoimmune versus, biliary dyskinesia. Autoimmune labs are pending and ordered per attending. No obvious bleeding Nausea and vomiting LFTs appear to be normal at this point Plan HIDA scan unremarkable We will need to proceed with an upper endoscopy due to the OR being extremely busy today we will proceed tomorrow Antiemetics PPI Further recommendations to follow
[2017-11-06] MEDS: Senna/Docusate Sodium 8.6/50 MG Tablet PO SCH ×3 (03:17→23:19)
[2017-11-06] MEDS: Sod Chloride 0.9% Inj 1,000 ML IV.CONT SCH ×3 (05:57→17:50)
[2017-11-06] MEDS: HYDROmorphone PF Inj 2 MG/ML Vial IV.PUSH PRN ×4 (06:11→20:23)
--- NOTE | 2017-11-06 07:13 | P.PNIM ---
Subjective Interval history: Pt seen and examined for f/u RUQ pain, N/V. AFVSS. D/w nursing. Overnight patient had severe nausea and vomiting unrelieved by Zofran. She was given Compazine but states after it was infused she developed panic attack type symptoms. The symptoms ultimately went away after about 10 minutes. She reports she has had Phenergan in the past without any side effects or issues. She states she filled up an emesis bag overnight and describes her vomit as "mucousy." States it is nonbilious, nonbloody. She doesn't feel like she has stomach ulcers because she states her pain is primarily RUQ and only minimally epigastric, and she denies any relief with the PPI. She also states the probiotics have not helped and if anything only makes her more nauseous. She tried to have some clears yesterday but immediately vomited. She initially was planned to have an EGD yesterday but the OR was very busy therefore GI planning for EGD today. Physical Exam Vital signs: Vital Signs 11/05/17 08:00 11/05/17 12:00 11/05/17 16:50 Temperature 98 F 98 F 98.5 F Pulse Rate 76 72 73 Respiratory Rate 14 16 20 Blood Pressure 106/67 113/73 Pulse Oximetry 99 100 100 11/05/17 20:00 11/05/17 23:05 11/06/17 01:00 Temperature 98.1 F Pulse Rate 84 66 55 L Respiratory Rate 20 18 18 Blood Pressure 113/71 128/76 120/63 Pulse Oximetry 100 99 100 Intake & Output 11/05/17 11/06/17 11/06/17 18:59 06:59 18:59 Intake Total 1840 / 1840 840 / 840 Balance 1840 / 1840 840 / 840 Intake: IV 1000 / 1000 840 / 840 NS Inj 1,000 ML @ 70 mls/hr IV. 1000 / 1000 840 / 840 CONT .[id number] [facility] Rx#:[id number] Oral 840 / 840 Other: # Voids 3 Date of Last Bowel Movement 11/04/17 # Emeses 3 Narrative: GENERAL: Thin, pleasant female resting in bed in [facility]. SKIN: Warm and dry. Few tattoos over UE. No jaundice. HEENT: AT/NC. Pupils equal and round. No scleral icterus. MMM. Piercing of nasal septum. NECK: Supple no tender LAD or JVD. HEART: RRR no m/r/g. LUNGS: CTAB without wheezes or crackles. ABDOMEN: +BS, soft, ND. TTP over RUQ, minimal tenderness over epigastric region. EXTREMITIES: No LE edema. 2+ pedal pulses. NEURO: Awake and alert. Nonfocal. PSYCH: Appropriate mood and affect. Results - Labs CBC & Chem 7: 11/03/17 11:48 11/03/17 11:48 Laboratory Results - last 24 hr 11/05/17 09:17 Chlam trachomat DNA PCR Not detected N.gonorrhoeae DNA (PCR) Not detected Microbiology 11/02/17 23:20 Blood - Peripheral Aerobic Blood Culture - Preliminary No growth in 3 days 11/02/17 23:20 Blood - Peripheral Anaerobic Blood Culture - Preliminary No growth in 3 days 11/02/17 23:15 Blood - Peripheral Aerobic Blood Culture - Preliminary No growth in 3 days 11/02/17 23:15 Blood - Peripheral Anaerobic Blood Culture - Preliminary No growth in 3 days Assessment and Plan - Assessment (1) Intractable right upper quadrant abdominal pain Code(s): R10.11 - Right upper quadrant pain Status: Acute - Plan 22 year old female with no significant PMH admitted 11/02 for intractable RUQ abdominal pain. 1. RUQ pain - CT A/P with tiny left nonobstructing renal stone, prominent stool in the colon , and small amount of free fluid within the pelvis, otherwise negative for acute process and no abnormality that can account for patient's pain - GB U/S negative (no stones, wall thickening, pericolic fluid) - WBC 15K on admission but has normalized - Mild elevation of TBili on admission but has normalized - LFTs otherwise WNL, lipase and acute phase reactants WNL - Not , no anemia, U/A negative - RF negative, GC/chlamydia negative - SHANNA and porphyrins pending - HIDA with EF 55% but exact pain is reproducible with administration of CCK - IV fluids - Clears as tolerated - PPI - Pain control, requiring IV Dilaudid. Pain exacerbated with PO - GI following, planning for EGD today. Will await results - Initially my plan was to wait until EGD to result prior to deciding whether to consult general surgery but her pain is not improving, her nausea/vomiting persists, and she is unable to tolerate PO. Given that the patient's pain was reproduced during HIDA scan as described above I think it would be worth having the general surgeon evaluate her for possible cholecystectomy. I don't think this can be done as an outpatient since she is unable to tolerate oral intake and is requiring IV Dilaudid to control her pain 2. 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
[2017-11-06] MEDS: Polyethylene Glycol 3350 17 GM Packet PO SCH (09:23)
[2017-11-06 10:05] LABS: Baso % (Auto) 0.7 % (0.0-2.0); Eos # (Auto) 0.1 th/mm3 (0.0-0.4); Eos % (Auto) 1.5 % (0.0-4.0); Hematocrit 36.1 % (35.0-46.0); Hemoglobin 12.3 gm/dL (11.6-15.3); Lymph # (Auto) 1.6 th/mm3 (1.0-4.8); Lymph % (Auto) 38.4 % (9.0-44.0); Mean Corpuscular Hemoglobin 30.6 pg (27.0-34.0); Mean Corpuscular Volume 90.1 fL (80.0-100.0); Mean Platelet Volume 7.9 fL (7.0-11.0); Mono # (Auto) 0.4 th/mm3 (0.0-0.9); Mono % (Auto) 9.2 % (0.0-8.0); Neut % (Auto) 50.2 % (16.0-70.0); Platelet Count 206 th/mm3 (150-450); Red Cell Distribution Width 12.5 % (11.6-17.2); White Blood Count 4.1 th/mm3 (4.0-11.0)
[2017-11-06 10:26] LABS: Albumin 3.5 g/dL (3.4-5.0); Anion Gap 9 meq/L (5-15); Aspartate Aminotransferase 15 U/L (15-37); Blood Urea Nitrogen 4 mg/dL (7-18); Calcium 8.4 mg/dL (8.5-10.1); Carbon Dioxide 27.1 meq/L (21.0-32.0); Chloride 106 meq/L (98-107); Glomerular Filtration Rate Greater Than 89 mL/min (>89); Glucose,Random 81 mg/dL (74-106); Potassium 3.7 meq/L (3.5-5.1); Sodium 142 meq/L (136-145)
[2017-11-06 10:27] LABS: Alanine Aminotransferase 22 U/L (10-53)
[2017-11-06 10:29] LABS: Alkaline Phosphatase 27 U/L (45-117); Total Protein 6.5 g/dL (6.4-8.2)
[2017-11-06] MEDS ORDERED: Lidocaine PF 1% Inj 5 ML Syringe INFILTRATN ONE (12:52)
--- NOTE | 2017-11-06 13:25 | P.PCN ---
Date of procedure: 11/06/17 Pre-op diagnosis: Abdominal pain, nausea and vomiting Procedure: PROCEDURE PERFORMED EGD with biopsy INDICATION FOR PROCEDURE Abdominal pain, nausea and vomiting PROCEDURE: The procedure, risks and benefits were discussed with Patient/POA and informed consent was obtained. Anesthesia sedated Patient with Diprivan. Patient was placed in the left lateral decubitus position. EGD: The Pentax videoscope was introduced through the oropharynx and advanced to the second portion of the duodenum under direct visualization. Retroflexion was performed in the stomach. FINDINGS: The esophagus this appeared to be unremarkable and within normal limits The stomach there was a small hiatal hernia there was also patchy erythema with superficial erosions noted in the antrum no distinct ulcerations biopsies were taken from the stomach the rest of the stomach was unremarkable The duodenum this was unremarkable and within normal limits ESTIMATED BLOOD LOSS: None SPECIMENS REMOVED: Antral biopsies COMPLICATIONS: None IMPRESSION: Small hiatal hernia Erosive gastritis PLAN: Await biopsies Avoid NSAIDs and aspirin Advance diet as tolerated Recommend Protonix 40 mg daily Follow-up with GI post discharge Anesthesia: MAC Surgeon: Chandu Pozo Condition: stable Disposition: floor
--- NOTE | 2017-11-06 17:10 | MB ---
cc: Juan Alberto Lr MD DATE: 11/06/2017 REQUESTING PHYSICIAN: Dr. Tahmina dAames. REASON FOR CONSULTATION: Right upper quadrant pain, possible biliary dyskinesia. HISTORY OF PRESENT ILLNESS: The patient is a 22-year-old female who was admitted to [facility] with severe right upper quadrant pain and weight loss. The patient underwent extensive workup including multiple imaging with a CT scan as well as HIDA scan. She also recently underwent upper endoscopy by Dr. Pozo, was pretty unremarkable without ulceration. Of note during the HIDA scan, the patient did have reproduction of her pain. It was thought that she likely has some biliary dyskinesia, and gallbladder was the source of her pain, and general surgery was asked to evaluate the patient for consideration of elective cholecystectomy. The patient currently states she still has pain, but the pain is worsened by food, especially high protein and fatty food, and the pain radiates across the upper portion of her abdomen. She does say adamantly that the exact pain she has was recreated with a CCK but even worse than with food. REVIEW OF SYSTEMS: A 12-point review of systems conducted with the patient is negative except for the pertinent positives mentioned above in history of present illness. PAST MEDICAL HISTORY: History of previous E. coli infection requiring inpatient antibiotics. PAST SURGICAL HISTORY: No previous major abdominal operations. FAMILY HISTORY: Multiple family members needing their gallbladder removed. Also, a history of diabetes. SOCIAL HISTORY: The patient denies alcohol, tobacco, or illicit drug use. ALLERGIES: MORPHINE, PENICILLIN G, SULFA, PROCHLORPERAZINE. CURRENT MEDICATIONS: Tylenol, Dilaudid, lactulose, Zofran, Protonix, Phenergan. PHYSICAL EXAMINATION: VITAL SIGNS: Temperature 98.5 degrees for heart rate 66, blood pressure 110/65, O2 saturation 100%. GENERAL: The patient is a well-developed, well-nourished, female, although thin. HEENT: Head is normocephalic, atraumatic. Pupils are round, reactive, accommodating to light. Sclerae are anicteric. Oral cavity is clear. NECK: Supple. No JVD. LUNGS: Breath sounds present bilaterally. Nonlabored breathing pattern. HEART: Regular in rhythm. PMI is nondisplaced. ABDOMEN: Soft. She is tender to palpation in right upper quadrant over her gallbladder. She has no surgical scars. No hernias. No ascites. No organomegaly. No peritonitis. No rebound tenderness. BACK: No CVA tenderness. EXTREMITIES: No clubbing, cyanosis, or edema. NEUROLOGIC: The patient is alert and oriented x3. Nonfocal peripheral exam. Cranial nerves 2-12 are grossly intact. Mood, judgment, and insight are intact. LABORATORY VALUES: White blood cell count 4.1, hemoglobin 12.3. Alkaline phosphatase is 27, total bilirubin 0.7, AST is 15, ALT is 22. IMAGING: HIDA scan with ejection fraction of 55% with reproduction of pain. CT scan, no acute process. Gallbladder ultrasound shows no acute process and no stones. ASSESSMENT AND PLAN: The patient is a 22-year-old female with classic biliary right upper quadrant pain exacerbated by a cholecystokinin injection for a HIDA scan. The patient has no other cause of her pain including a negative upper endoscopy. I discussed with the patient about the potential benefit of cholecystectomy for relief of her pain. This would be elective procedure, and she should discuss this with her family and consider cholecystectomy. I did discuss the risks, benefits, and alternatives to surgery for removal of the gallbladder. We will follow along with the patient and potentially a plan for a cholecystectomy early this week if the patient agrees. MD JOANNA Barbour/karson , 01:56 PM , 02:06 PM
[2017-11-06] MEDS: Pantoprazole Inj 40 MG Vial IV.PUSH SCH (17:45)
[2017-11-07] MEDS: HYDROmorphone PF Inj 2 MG/ML Vial IV.PUSH PRN ×6 (00:25→20:58)
--- NOTE | 2017-11-07 07:36 | P.PNIM ---
Subjective Interval history: Pt seen and examined. AFVSS. Had EGD done yesterday showing erosive gastritis. Was also evaluated by surgery yesterday for biliary dyskinesia. She is leaning towards elective cholecystectomy but would like to speak with her mother when she gets to the hospital today. She is hesitant about trying to go home on pain medications and seeing how she does because she states the pain is severe and she doesn't want to be dependent on pain pills. She hasn't had any vomiting since yesterday but her RUQ persists. She tried to eat a little bit for dinner last night and breakfast this morning. She reports she was able to keep it down but her pain worsened after eating. She also started her menstrual cycle yesterday evening and is now having cramps on top of the pain she has been having. Physical Exam Vital signs: Vital Signs 11/06/17 08:10 11/06/17 11:30 11/06/17 13:30 Temperature 98.6 F 98.6 F 98.5 F Pulse Rate 60 60 66 Respiratory Rate 16 16 16 Blood Pressure 101/56 L 119/68 110/65 Pulse Oximetry 99 99 100 11/06/17 17:00 11/06/17 20:30 11/07/17 00:15 Temperature 98.6 F 97.8 F 97.9 F Pulse Rate 84 79 80 Respiratory Rate 16 18 18 Blood Pressure 120/71 99/62 L 101/63 Pulse Oximetry 98 100 100 11/07/17 04:00 Temperature 98 F Pulse Rate 72 Respiratory Rate 20 Blood Pressure 106/71 Pulse Oximetry 100 Intake & Output 11/06/17 11/07/17 11/07/17 18:59 06:59 18:59 Intake Total 1590 / 1590 720 / 720 Balance 1590 / 1590 720 / 720 Intake: IV 950 / 950 NS Inj 1,000 ML @ 125 mls/hr IV 950 / 950 .CONT .Q8H [facility] Rx#:[id number] Oral 240 / 240 720 / 720 Anesthesia Amount 400 / 400 Other: # Voids 3 3 Date of Last Bowel Movement 11/06/17 11/06/17 # Bowel Movements 1 Narrative: GENERAL: Thin, pleasant female resting in bed in [facility]. SKIN: Warm and dry. Few tattoos over UE. No jaundice. HEENT: AT/NC. Pupils equal and round. No scleral icterus. MMM. Piercing of nasal septum. NECK: Supple no tender LAD or JVD. HEART: RRR no m/r/g. LUNGS: CTAB without wheezes or crackles. ABDOMEN: +BS, soft, ND. TTP over RUQ, minimal tenderness over epigastric region. EXTREMITIES: No LE edema. 2+ pedal pulses. NEURO: Awake and alert. Nonfocal. PSYCH: Appropriate mood and affect. Results - Labs CBC & Chem 7: 11/06/17 09:30 11/06/17 09:30 Laboratory Results - last 24 hr 11/06/17 11/06/17 09:30 09:30 WBC 4.1 RBC 4.00 Hgb 12.3 Hct 36.1 MCV 90.1 MCH 30.6 MCHC 34.0 RDW 12.5 Plt Count 206 MPV 7.9 Neut % (Auto) 50.2 Lymph % (Auto) 38.4 [place] % (Auto) 9.2 H Eos % (Auto) 1.5 Baso % (Auto) 0.7 Neut # (Auto) 2.0 Lymph # (Auto) 1.6 [place] # (Auto) 0.4 Eos # (Auto) 0.1 Baso # (Auto) 0.0 WBC Differential . Differential Comment Auto diff final Sodium 142 Potassium 3.7 Chloride 106 Carbon Dioxide 27.1 Anion Gap 9 BUN 4 L Creatinine 0.73 Estimated GFR Greater than 89 Random Glucose 81 Calcium 8.4 L Total Bilirubin 0.7 AST 15 ALT 22 Alkaline Phosphatase 27 L Total Protein 6.5 Albumin 3.5 Microbiology 11/02/17 23:20 Blood - Peripheral Aerobic Blood Culture - Preliminary No growth in 4 days 11/02/17 23:20 Blood - Peripheral Anaerobic Blood Culture - Preliminary No growth in 4 days 11/02/17 23:15 Blood - Peripheral Aerobic Blood Culture - Preliminary No growth in 4 days 11/02/17 23:15 Blood - Peripheral Anaerobic Blood Culture - Preliminary No growth in 4 days Assessment and Plan - Assessment (1) Intractable right upper quadrant abdominal pain Code(s): R10.11 - Right upper quadrant pain Status: Acute (2) Biliary dyskinesia Code(s): K82.8 - Other specified diseases of gallbladder Status: Acute - Plan 22 year old female with no significant PMH admitted 11/02 for intractable RUQ abdominal pain. 8/27: Patient to speak with mother about elective cholecystectomy. Should she choose to proceed will have Dr. Lr notified. Continue current management with IV fluids, pain control, and diet as tolerated. Changed IV Protonix to PO. 1. RUQ pain, biliary dyskinesia - CT A/P with tiny left nonobstructing renal stone, prominent stool in the colon , and small amount of free fluid within the pelvis, otherwise negative for acute process and no abnormality that can account for patient's pain - GB U/S negative (no stones, wall thickening, pericolic fluid) - WBC 15K on admission but has normalized - Mild elevation of TBili on admission but has normalized - LFTs otherwise WNL, lipase and acute phase reactants WNL - Not , no anemia, U/A negative - RF negative, GC/chlamydia negative - SHANNA and porphyrins pending - Stool H. pylori pending - HIDA with EF 55% but exact pain is reproducible with administration of CCK - GI consulted, patient underwent EGD yesterday showing erosive gastritis ( likely secondary to vomiting). Esophagus and duodenum appeared normal. GI recommends f/u as outpatient - GS consulted given reproducible pain with CCK on HIDA. Considering elective cholecystectomy of biliary dyskinesia - IV fluids - Diet as tolerated - Change Protonix to PO - Pain control, requiring IV Dilaudid 2. Hematuria - Microscopic hematuria on U/A - Small stone on CT A/P - Will need f/u U/A as outpatient to ensure resolution DVT prophylaxis: SCDs Discussed Condition With: The patient, Dr. Lr Discharge Planning: Possible cholecystectomy early this week
[2017-11-07] MEDS: Senna/Docusate Sodium 8.6/50 MG Tablet PO SCH ×2 (08:38→20:59)
[2017-11-07] MEDS: Polyethylene Glycol 3350 17 GM Packet PO SCH (08:38)
[2017-11-07] MEDS: Sod Chloride 0.9% Inj 1,000 ML IV.CONT SCH ×4 (08:46→20:56)
--- NOTE | 2017-11-07 13:06 | P.PNGI ---
Subjective Interval history: Patient is resting on her right side in the bed no acute nausea vomiting or dyspepsia. Patient states normal bowel movement yesterday current hemoglobin stable at 12.3. <Mica Brown - Last Filed: 11/07/17 13:10> Physical Exam Vital signs: Vital Signs 11/06/17 13:30 11/06/17 17:00 11/06/17 20:30 Temperature 98.5 F 98.6 F 97.8 F Pulse Rate 66 84 79 Respiratory Rate 16 16 18 Blood Pressure 110/65 120/71 99/62 L Pulse Oximetry 100 98 100 11/07/17 00:15 11/07/17 04:00 11/07/17 08:00 Temperature 97.9 F 98 F 98 F Pulse Rate 80 72 64 Respiratory Rate 18 20 20 Blood Pressure 101/63 106/71 119/64 Pulse Oximetry 100 100 100 11/07/17 11:37 Temperature 98.6 F Pulse Rate 65 Respiratory Rate 24 Blood Pressure 111/55 L Pulse Oximetry 100 Intake & Output 11/06/17 11/07/17 11/07/17 18:59 06:59 18:59 Intake Total 1590 / 1590 720 / 720 1999 Balance 1590 / 1590 720 / 720 1999 Intake: IV 950 / 950 1999 NS Inj 1,000 ML @ 125 mls/hr IV 950 / 950 1999 .CONT .Q8H [facility] Rx#:[id number] Oral 240 / 240 720 / 720 Anesthesia Amount 400 / 400 Other: # Voids 3 3 Date of Last Bowel Movement 11/06/17 11/06/17 # Bowel Movements 1 - Constitutional mild distress, thin - Routine HEENT Exam Head: Present: normocephalic ENT: Present: mucous membranes moist - Routine Respiratory Exam Present: accessory muscle use (Even, unlabored) - Routine Cardiovascular Exam Present: S1, S2 - Routine Abdominal Exam Present: soft (Flat, still notes some generalized tenderness especially on the right upper quadrant but more controlled) - Routine Skin Exam Present: pallor - Routine Neurological Exam Present: alert <Mica Brown - Last Filed: 11/07/17 13:10> Vital signs: Vital Signs 11/06/17 17:00 11/06/17 20:30 11/07/17 00:15 Temperature 98.6 F 97.8 F 97.9 F Pulse Rate 84 79 80 Respiratory Rate 16 18 Blood Pressure 120/71 99/62 L 101/63 Pulse Oximetry 98 100 100 11/07/17 04:00 11/07/17 08:00 11/07/17 11:37 Temperature 98 F 98 F 98.6 F Pulse Rate 72 64 65 Respiratory Rate 20 20 24 Blood Pressure 106/71 119/64 111/55 L Pulse Oximetry 100 100 100 Intake & Output 11/06/17 11/07/17 11/07/17 18:59 06:59 18:59 Intake Total 1590 / 1590 720 / 720 1999 Balance 1590 / 1590 720 / 720 1999 Intake: IV 950 / 950 1999 NS Inj 1,000 ML @ 125 mls/hr IV 950 / 950 1999 .CONT .Q8H [facility] Rx#:[id number] Oral 240 / 240 720 / 720 Anesthesia Amount 400 / 400 Other: # Voids 3 3 Date of Last Bowel Movement 11/06/17 11/06/17 # Bowel Movements 1 <Jj Godfrey - Last Filed: 11/07/17 16:06> Results - Labs CBC & Chem 7: 11/06/17 09:30 11/06/17 09:30 Laboratory Results - last 24 hr 11/04/17 11:00 Plasma Total Porphyrins Less than 1.0 Pl Tot Porphyr Revd By See below Plasma Porphyrin Intrp . Microbiology 11/02/17 23:20 Blood - Peripheral Aerobic Blood Culture - Final No growth in 5 days 11/02/17 23:20 Blood - Peripheral Anaerobic Blood Culture - Final No growth in 5 days 11/02/17 23:15 Blood - Peripheral Aerobic Blood Culture - Final No growth in 5 days 11/02/17 23:15 Blood - Peripheral Anaerobic Blood Culture - Final No growth in 5 days <Mica Brown - Last Filed: 11/07/17 13:10> - Labs CBC & Chem 7: 11/06/17 09:30 11/06/17 09:30 Laboratory Results - last 24 hr 11/04/17 11/04/17 10:35 11:00 Plasma Total Porphyrins Less than 1.0 Pl Tot Porphyr Revd By See below Plasma Porphyrin Intrp . SHANNA Screen Pos H Microbiology 11/06/17 16:20 Stool Cryptosporidium Antigen - Final Negative - No Cryptosporicium antigen detected In selected cases of patients with a history of immunosuppression or foreign travel, a full ova and parasites examination may be desired. Contact the microbiology lab if full workup is indicated and subit another specimen for testing. 11/06/17 16:20 Stool Giardia Antigen (BARB) - Final Negative - No Giardia Antigen detected In selected cases of patients with a history of immunosuppression or foreign travel, a full ova and parasites examination may be desired. Contact the microbiology lab if full workup is indicated and subit another specimen for testing. 11/02/17 23:20 Blood - Peripheral Aerobic Blood Culture - Final No growth in 5 days 11/02/17 23:20 Blood - Peripheral Anaerobic Blood Culture - Final No growth in 5 days 11/02/17 23:15 Blood - Peripheral Aerobic Blood Culture - Final No growth in 5 days 11/02/17 23:15 Blood - Peripheral Anaerobic Blood Culture - Final No growth in 5 days <Jj Godfrey - Last Filed: 11/07/17 16:06> Assessment and Plan (1) Epigastric abdominal pain Status: Acute Code(s): R10.13 - Epigastric pain (2) Intractable right upper quadrant abdominal pain Status: Acute Code(s): R10.11 - Right upper quadrant pain (3) Alternating constipation and diarrhea Status: Acute Code(s): R19.8 - Other specified symptoms and signs involving the digestive system and abdomen (4) Nausea & vomiting Status: Acute Code(s): R11.2 - Nausea with vomiting, unspecified - Plan 22-year-old slim female with onset of right upper quadrant and epigastric abdominal pain 1 week. Patient notes some diarrhea initially for the first couple of days but now CT scan shows prominent stool. Symptoms could be IBS related Gallbladder ultrasound unremarkable liver normal in CT showed left renal stone prominent stool and some mild free fluid in the pelvis, unspecified? Hyperbilirubinemia, initially 1.1 on admission now normalized at 0.4 and 24 hours and normal LFTs normal alkaline phosphatase. Questionable hepatocellular disease although CT of the liver looked normal. Questionable autoimmune, inflammatory, infectious, indications. Epigastric pain initially, describes as a burning sensation, symptoms of nausea and vomiting, no tenderness on palpation no dyspepsia or dysphasia symptoms. Questionable GERD? Right upper quadrant pain, gallbladder ultrasound normal and CT showed prominent stool but no acute liver pancreas or bowel notes. Questionable gallbladder functioning? Autoimmune versus, biliary dyskinesia. Autoimmune labs are pending and ordered per attending. No obvious bleeding Nausea and vomiting LFTs appear to be normal at this point 11/07/2017 patient is resting in the bed and appears comfortable but requiring pain management for her right upper quadrant abdominal pain. EGD performed on 11/06/2017 showed erosive gastritis. Biopsies are pending. Discussed results again with patient and any aggregating factors to her gastritis. Patient drinks large amount of carbonated drinks, and eats spicy hot sauce, large amounts which could be assisting with her symptoms discussed with patient the need for a more bland diet at this time. Continue PPI, avoid NSAIDs, avoid spicy fatty foods as well as fast food. HIDA scan was unremarkable. Hemoglobin stable at 12.3. Bowel regimen appears to be normal with formed BM without any obvious bleeding in the past 24 hours. We can follow patient as outpatient in the GI office and especially post hospital for symptom management and medications. Plan Diet per attending , no carbonated drinks Supportive care Antiemetics PPI Bowel regimen Patient was seen per myself and Dr. Godfrey, note was written on his behalf <Mica Brown - Last Filed: 11/07/17 13:10> (1) Epigastric abdominal pain Status: Acute Code(s): R10.13 - Epigastric pain (2) Intractable right upper quadrant abdominal pain Status: Acute Code(s): R10.11 - Right upper quadrant pain (3) Alternating constipation and diarrhea Status: Acute Code(s): R19.8 - Other specified symptoms and signs involving the digestive system and abdomen (4) Nausea & vomiting Status: Acute Code(s): R11.2 - Nausea with vomiting, unspecified - Plan Seen and examined with RN ENDOCRINOLOGY, Nurse present during exam. Still with R uq pain worse with food. ? biliary dykinesia. Surgery on case. S/p egd, biopsies pending. Continue protonix. GI will sign off, fu with gi upon dc please. Thank you The exam, history, and the medical decision-making described in the above note were completed with the assistance of the mid-level provider. I reviewed and agree with the findings presented. I attest that I had a [id number] encounter with the patient on the same day, and personally performed and documented my assessment and findings in the medical record. <Jj Godfrey - Last Filed: 11/07/17 16:06>
[2017-11-07 15:03] LABS: Anti-Nuclear Antibody Screen Pos (Neg)
--- NOTE | 2017-11-07 19:31 | P.PNGS ---
Subjective Patient reports: no new complaints, still having pain Physical Exam Vital signs: Vital Signs 11/06/17 20:30 11/07/17 00:15 11/07/17 04:00 Temperature 97.8 F 97.9 F 98 F Pulse Rate 79 80 72 Respiratory Rate 18 18 20 Blood Pressure 99/62 L 101/63 106/71 Pulse Oximetry 100 100 100 11/07/17 08:00 11/07/17 11:37 11/07/17 16:30 Temperature 98 F 98.6 F 97.5 F L Pulse Rate 64 65 68 Respiratory Rate 20 24 24 Blood Pressure 119/64 111/55 L Pulse Oximetry 100 100 99 Intake & Output 11/07/17 11/07/17 11/08/17 06:59 18:59 06:59 Intake Total 720 / 720 3110 / 3110 Balance 720 / 720 3110 / 3110 Intake: IV 2750 / 2750 NS Inj 1,000 ML @ 125 mls/hr IV 2750 / 2750 .CONT .Q8H [facility] Rx#:[id number] Oral 720 / 720 360 / 360 Other: # Voids 3 5 Date of Last Bowel Movement 11/06/17 - Constitutional no acute distress - Routine Abdominal Exam Present: soft, normoactive bowel sounds Comments: RUQ pain on palpation Assessment and Plan - Assessment (1) Biliary dyskinesia Code(s): K82.8 - Other specified diseases of gallbladder Status: Acute - Plan 22yo female with Biliary Dyskinesia. I had a long d/w the family and the patient about lap valentin, d/s risks, benefits and alternatives. patient wants to proceed. will make NPO p midnight
[2017-11-08] MEDS: HYDROmorphone PF Inj 2 MG/ML Vial IV.PUSH PRN ×5 (01:06→23:59)
--- NOTE | 2017-11-08 08:37 | P.PNIM ---
Subjective Interval history: Pt seen and examined for f/u of RUQ, biliary dyskinesia, erosive gastritis. AFVSS. Reports feeling a little bit better this morning. No further nausea or vomiting but continues to have RUQ that is exacerbated by eating. Going for elective cholecystectomy today. Looking forward to being able to go home soon. Physical Exam Vital signs: Vital Signs 11/07/17 11:37 11/07/17 16:30 11/07/17 19:40 Temperature 98.6 F 97.5 F L 98.3 F Pulse Rate 65 68 77 Respiratory Rate 24 24 24 Blood Pressure 111/55 L 131/80 Pulse Oximetry 100 99 96 11/07/17 23:55 11/08/17 04:15 Temperature 98.6 F 97.9 F Pulse Rate 84 51 L Respiratory Rate 20 18 Blood Pressure 123/75 105/61 Pulse Oximetry 99 99 Intake & Output 11/07/17 11/08/17 11/08/17 18:59 06:59 18:59 Intake Total 3110 / 3110 1192 / 1192 Balance 3110 / 3110 1192 / 1192 Intake: IV 2750 / 2750 712 / 712 NS Inj 1,000 ML @ 125 mls/hr IV 2750 / 2750 712 / 712 .CONT .Q8H [facility] Rx#:[id number] Oral 360 / 360 480 / 480 Other: # Voids 5 2 Narrative: GENERAL: Thin, pleasant female resting in bed in NAD. SKIN: Warm and dry. Few tattoos over UE. No jaundice. HEENT: AT/NC. Pupils equal and round. No scleral icterus. MMM. Piercing of nasal septum. NECK: Supple no tender LAD or JVD. HEART: RRR no m/r/g. LUNGS: CTAB without wheezes or crackles. ABDOMEN: +BS, soft, ND. TTP over RUQ, minimal tenderness over epigastric region. EXTREMITIES: No LE edema. 2+ pedal pulses. NEURO: Awake and alert. Nonfocal. PSYCH: Appropriate mood and affect. Results - Labs CBC & Chem 7: 11/06/17 09:30 11/06/17 09:30 Laboratory Results - last 24 hr 11/04/17 11/04/17 10:35 11:00 Plasma Total Porphyrins Less than 1.0 Pl Tot Porphyr Revd By See below Plasma Porphyrin Intrp . SHANNA Screen Pos H Microbiology 11/06/17 16:20 Stool Cryptosporidium Antigen - Final Negative - No Cryptosporicium antigen detected In selected cases of patients with a history of immunosuppression or foreign travel, a full ova and parasites examination may be desired. Contact the microbiology lab if full workup is indicated and subit another specimen for testing. 11/06/17 16:20 Stool Giardia Antigen (BARB) - Final Negative - No Giardia Antigen detected In selected cases of patients with a history of immunosuppression or foreign travel, a full ova and parasites examination may be desired. Contact the microbiology lab if full workup is indicated and subit another specimen for testing. 11/02/17 23:20 Blood - Peripheral Aerobic Blood Culture - Final No growth in 5 days 11/02/17 23:20 Blood - Peripheral Anaerobic Blood Culture - Final No growth in 5 days 11/02/17 23:15 Blood - Peripheral Aerobic Blood Culture - Final No growth in 5 days 11/02/17 23:15 Blood - Peripheral Anaerobic Blood Culture - Final No growth in 5 days Assessment and Plan - Assessment (1) Intractable right upper quadrant abdominal pain Code(s): R10.11 - Right upper quadrant pain Status: Acute (2) Biliary dyskinesia Code(s): K82.8 - Other specified diseases of gallbladder Status: Acute - Plan 22 year old female with no significant PMH admitted 11/02 for intractable RUQ abdominal pain. 11/08: Going for cholecystectomy today 1. Biliary dyskinesia - CT A/P with tiny left nonobstructing renal stone, prominent stool in the colon , and small amount of free fluid within the pelvis, otherwise negative for acute process - GB U/S negative (no stones, wall thickening, pericolic fluid) - LFTs and lipase WNL - HIDA with EF 55% but exact pain is reproducible with administration of CCK - GS consulted given reproducible pain with CCK on HIDA. Going for elective cholecystectomy today - IV fluids - NPO for surgery - Pain control, requiring IV Dilaudid 2. Hematuria - Microscopic hematuria on U/A - Negative for UTI - Small stone on CT A/P - Negative GC/chlamydia - Will need f/u U/A as outpatient to ensure resolution 3. Erosive gastritis - S/P EGD 11/06 - Likely secondary to vomiting - Continue PPI - GI has signed off, recommend f/u as outpatient 4. Positive SHANNA - SHANNA screen positive - Unsure if this is significant at this time - Titer and pattern pending - RF negative DVT prophylaxis: SCDs Discharge Planning: Possibly tomorrow if tolerating PO, pain controlled, and cleared by surgery
[2017-11-08] MEDS ORDERED: Lidocaine PF 1% Inj 5 ML Syringe INFILTRATN ONE (12:00)
[2017-11-08] MEDS ORDERED: Ketorolac Inj 30 MG/ML (IVP) Vial IV.PUSH ONE (12:00)
[2017-11-08] MEDS ORDERED: Phenylephrine/NS 1000 MCG/10ML Syringe IV.PUSH ONE (12:00)
[2017-11-08] MEDS: Polyethylene Glycol 3350 17 GM Packet PO SCH (12:04)
[2017-11-08] MEDS: Senna/Docusate Sodium 8.6/50 MG Tablet PO SCH (12:05)
[2017-11-08] MEDS: Sod Chloride 0.9% Inj 1,000 ML IV.CONT SCH ×3 (12:38→20:24)
[2017-11-08] MEDS ORDERED: Bupivacaine/Epinephrine Inj 0.25% 50 ML Vial ONE (17:18)
[2017-11-08] MEDS ORDERED: Ciprofloxacin 400 MG/200 ML 400 MG/200 ML PIGGYBACK IV.SIG ONE (17:36)
[2017-11-08] MEDS ORDERED: fentaNYL Citrate Inj 100 MCG/2 ML Ampul ONE (19:01)
--- NOTE | 2017-11-08 20:25 | MP ---
cc: Juan Alberto Lr MD DATE OF OPERATION: 11/08/2017 PREOPERATIVE DIAGNOSIS: Biliary dyskinesia. POSTOPERATIVE DIAGNOSIS: Biliary dyskinesia. PROCEDURE PERFORMED: Laparoscopic cholecystectomy. ANESTHESIA: General. ATTENDING SURGEON: Juan Alberto Lr MD NP: Staff. ESTIMATED BLOOD LOSS: Less than 10 mL. COMPLICATIONS: None. FINDINGS: Grossly normal-appearing gallbladder. No intra-abdominal pathology noted on diagnostic laparoscopy. INDICATIONS FOR PROCEDURE: The patient is a 22-year-old female who was admitted to [facility] with abdominal pain. The patient underwent an extensive workup including upper endoscopy and multiple imaging studies. HIDA scan was normal except the patient had severe recurrence of her symptoms with CCK injection. The patient's symptomatology was consistent with a biliary nature with increased pain with fatty food intake. General surgery was consulted, and after discussion with the patient and her family about management including laparoscopic cholecystectomy, she agreed to undergo laparoscopic cholecystectomy in an attempt to treat her pain. The patient understood the risks, benefits and alternatives and also understood that laparoscopic cholecystectomy cannot guarantee relief of her pain based on a diagnosis of biliary dyskinesia. DESCRIPTION OF PROCEDURE: The patient was taken to the operating room, placed in a supine position and placed under general endotracheal anesthesia. The abdomen was prepped and draped in sterile fashion. A Timeout was performed. The abdomen was entered through a Nickie technique through the umbilical skin. Local anesthetic was used at this site as well as all the port sites. We entered the abdomen under direct visualization through the midline fascia under the umbilicus. We placed a 10 mm trocar into the abdomen under direct visualization. We insufflated the abdomen. We placed 3 additional ports, which were 5 mm ports, all in the right upper quadrant under direct visualization of the laparoscope. We were then able to grasp the gallbladder and retract it upward. The gallbladder was fairly normal appearing. We did take a hook electrocautery to take down the peritoneum over the triangle of [place] and used a [place] dissector to dissect out the cystic duct and the cystic artery without difficulty. The critical view of safety was obtained. We doubly clipped the cystic duct and cystic artery and also clipped both structures distally and divided them with laparoscopic EndoShears. The gallbladder was removed from the gallbladder fossa with the hook electrocautery and removed from the abdomen with an EndoCatch bag through the Nickie umbilical port. We then performed a diagnostic laparoscopy and there was essentially normal viscera and no evidence of any pathology. The gallbladder fossa was unremarkable with no bleeding, bile leak or complication. We removed the ports under visualization of the laparoscope and expressed the pneumoperitoneum. We closed the fascia at the Nickie entry site with a [id number] 0 Vicryl suture. We closed the skin with 4-0 Monocryl and Dermabond. The patient was discontinued from anesthesia and taken to the PACU in stable condition. The patient tolerated the procedure well with no apparent complications. All counts were correct. I was present and scrubbed for the entire procedure. MD JOANNA Barbour/cruz , 07:53 PM , 08:01 PM
[2017-11-09] MEDS: Senna/Docusate Sodium 8.6/50 MG Tablet PO SCH ×3 (00:01→20:26)
[2017-11-09] MEDS: Sod Chloride 0.9% Inj 1,000 ML IV.CONT SCH ×3 (01:59→06:39)
[2017-11-09] MEDS: HYDROmorphone PF Inj 2 MG/ML Vial IV.PUSH PRN (04:18)
--- NOTE | 2017-11-09 08:21 | P.DS ---
Date of admission: 11/06/17 11:03 Primary care physician: Shannon Moya Brief History from admission: 22-year-old female with no significant past medical history presents to the emergency department for the evaluation of right upper quadrant abdominal pain. The patient reports she has been evaluated at [facility] twice in the past 5 days. The patient reports initially she was diagnosed with kidney stones and given a prescription for ciprofloxacin and Toradol with which she was compliant. She reports despite the Toradol she has continued to have right upper quadrant abdominal pain. She returned to [facility] where repeat workup was within normal limits according to the patient. Was discharged home and told to follow-up with her primary care physician. The patient went to see her PCP earlier today for her continued right upper quadrant abdominal pain. She was sent to the emergency department for further evaluation secondary to her intractable pain. The patient reports nausea and vomiting that began approximately she is tearful on examination. CT of the abdomen/pelvis was unremarkable. Gallbladder ultrasound also unremarkable. The patient's labs are significant only for a white blood cell count of 15 with a left and bandemia. The appendix was not visualized on CT scan. DS: Medications - Discharge Medications Prescriptions: docusate sodium [Colace] 100 mg PO BID #60 cap hydrocodone-acetaminophen 1 tab PO Q4H PRN #15 tab PRN Reason: acute post op pain exception pantoprazole 40 mg PO DAILY #30 tab DS: Summary Hospital Course: 22 year old female with no significant PMH admitted 11/02 for intractable RUQ abdominal pain. 11/08: s/p cholecystectomy 1. Biliary dyskinesia - CT A/P with tiny left nonobstructing renal stone, prominent stool in the colon , and small amount of free fluid within the pelvis, otherwise negative for acute process - GB U/S negative (no stones, wall thickening, pericolic fluid) - LFTs and lipase WNL - HIDA with EF 55% but exact pain is reproducible with administration of CCK - GS consulted given reproducible pain with CCK on HIDA. Going for elective cholecystectomy today - IV fluids - NPO for surgery - Pain control, requiring IV Dilaudid 2. Hematuria - Microscopic hematuria on U/A - Negative for UTI - Small stone on CT A/P - Negative GC/chlamydia - Will need f/u U/A as outpatient to ensure resolution 3. Erosive gastritis - S/P EGD 11/06 - Likely secondary to vomiting - Continue PPI - GI has signed off, recommend f/u as outpatient 4. Positive SHANNA - SHANNA screen positive - Unsure if this is significant at this time - Titer and pattern pending - RF negative - Time Spent with Patient Total time spent providing and/or coordinating discharge services: Greater than 30 minutes - Quality: VTE Deep Vein Thrombosis/Pulmonary Embolism Present on Admission: No Exam Vital signs: Vital Signs 11/08/17 12:00 11/08/17 19:03 11/08/17 19:15 Temperature 98.6 F 98.5 F Pulse Rate 86 80 53 L Respiratory Rate 16 14 16 Blood Pressure 118/60 122/77 118/73 Pulse Oximetry 100 100 11/08/17 19:30 11/08/17 19:45 11/08/17 20:00 Temperature Pulse Rate 51 L 55 L 57 L Respiratory Rate 19 16 16 Blood Pressure 117/71 109/67 116/71 Pulse Oximetry 100 100 99 11/08/17 20:15 11/08/17 20:37 11/08/17 21:55 Temperature 98.7 F 98.9 F Pulse Rate 53 L 62 Respiratory Rate 16 23 Blood Pressure 107/61 121/63 Pulse Oximetry 100 100 100 11/08/17 23:45 11/09/17 04:10 Temperature 98.6 F 98.4 F Pulse Rate 75 62 Respiratory Rate 20 18 Blood Pressure 115/66 104/61 Pulse Oximetry 100 98 Intake & Output 11/08/17 11/09/17 11/09/17 18:59 06:59 18:59 Intake Total 1700 / 1700 2962 / 2962 Output Total 10 10 0 / 0 Balance 1690 / 1690 2962 / 2962 Intake: IV 1000 / 1000 2200 / 2200 NS Inj 1,000 ML @ 125 mls/hr IV 1000 / 1000 1999 / 1999 .CONT .Q8H [facility] Rx#:[id number] Cipro 400 MG/200 ML Inj 400 mg 200 / 200 In 200 ml @ 0 mls/hr IV.SIG . STK-MED ONE Rx#:[id number] Oral 450 / 450 Anesthesia Amount 700 / 700 Other 312 / 312 Output: Urine 0 / 0 Estimated Blood Loss 10 / 10 Other: Other Intake Source Saline Solution # Voids 5 5 Narrative: GENERAL: Young female resting in bed in [facility]. SKIN: Warm and dry. Few tattoos over UE. No jaundice. HEENT: AT/NC. Pupils equal and round. No scleral icterus. MMM. Piercing of nasal septum. NECK: Supple no tender LAD or JVD. HEART: RRR no m/r/g. LUNGS: CTAB without wheezes or crackles. ABDOMEN: Lap surgical site CDI. Pain at the surgical site. +BS, soft. EXTREMITIES: No LE edema. 2+ pedal pulses. NEURO: Awake and alert. Nonfocal. PSYCH: Appropriate mood and affect. Results Procedures completed during hospitalization: s/p cholecystectomy 11/08/[address] Lr gen surg Completed studies during hospitalization: Pending at discharge 11/06/17 07:31 Surgical [PTH] Routine Pending studies at discharge: Pending at discharge 11/08/17 08:06 Surgical [PTH] Routine - Impressions ITS Impressions Abdomen/Pelvis CT 11/02/17 15:39 CONCLUSION: 1. No abnormality is identified to explain the right flank pain. There is a questionable punctate nonobstructing left upper renal stone. No right renal stones are identified. 2. There is a small volume of free fluid within the pelvis. Although nonspecific this may be physiologic. Please note that the appendix is not visualized. 3. Prominent stool throughout the colon. Gallbladder Ultrasound 11/02/17 15:39 CONCLUSION: 1. Negative abdominal sonogram. Bile Acid Absorption NM 11/04/17 00:00 CONCLUSION: 1. Unremarkable study. Discharge Plan - Discharge Disposition Patient Disposition: 01 Discharge Home - Discharge Condition Condition: Good - Discharge Order Discharge Orders: Discharge Order (Routine); Ordered 11/09/17 Ordered By: Kadi Corrales - Discharge Details Anticipated Discharge Date: 11/09/17 - Physicians Team Attending Provider: Kadi Corrales Other Providers: Chandu Pozo MD ; Juan Alberto Lr MD
[2017-11-09] MEDS: Polyethylene Glycol 3350 17 GM Packet PO SCH (10:05)
--- NOTE | 2017-11-09 12:41 | P.PN ---
Subjective Interval history: Tolerates p.o. intake. Still with abdominal pain. Did not have a bowel movement yet. No nausea or vomiting. Was able to ambulate to the bedside commode and later on to the bathroom. Her mother at bedside. All questions answered to best of my ability. Physical Exam Vital signs: Vital Signs 11/08/17 19:03 11/08/17 19:15 11/08/17 19:30 Temperature 98.5 F Pulse Rate 80 53 L 51 L Respiratory Rate 14 16 19 Blood Pressure 122/77 118/73 117/71 Pulse Oximetry 100 100 100 11/08/17 19:45 11/08/17 20:00 11/08/17 20:15 Temperature 98.7 F Pulse Rate 55 L 57 L 53 L Respiratory Rate 16 16 16 Blood Pressure 109/67 116/71 107/61 Pulse Oximetry 100 99 100 11/08/17 20:37 11/08/17 21:55 11/08/17 23:45 Temperature 98.9 F 98.6 F Pulse Rate 62 75 Respiratory Rate 23 20 Blood Pressure 121/63 115/66 Pulse Oximetry 100 100 100 11/09/17 04:10 Temperature 98.4 F Pulse Rate 62 Respiratory Rate 18 Blood Pressure 104/61 Pulse Oximetry 98 Intake & Output 11/08/17 11/09/17 11/09/17 18:59 06:59 18:59 Intake Total 1700 / 1700 2962 / 2962 Output Total 10 10 0 / 0 Balance 1690 / 1690 2962 / 2962 Intake: IV 1000 / 1000 2200 / 2200 NS Inj 1,000 ML @ 125 mls/hr IV 1000 / 1000 1999 / 1999 .CONT .Q8H [facility] Rx#:[id number] Cipro 400 MG/200 ML Inj 400 mg 200 / 200 In 200 ml @ 0 mls/hr IV.SIG . STK-MED ONE Rx#:[id number] Oral 450 / 450 Anesthesia Amount 700 / 700 Other 312 / 312 Output: Urine 0 / 0 Estimated Blood Loss 10 10 Other: Other Intake Source Saline Solution # Voids 5 5 Narrative: GENERAL: Young female resting in bed in NAD. SKIN: Warm and dry. Few tattoos over UE. No jaundice. HEENT: AT/NC. Pupils equal and round. No scleral icterus. MMM. Piercing of nasal septum. NECK: Supple no tender LAD or JVD. HEART: RRR no m/r/g. LUNGS: CTAB without wheezes or crackles. ABDOMEN: Lap surgical site CDI. Pain at the surgical site. +BS, soft. EXTREMITIES: No LE edema. 2+ pedal pulses. NEURO: Awake and alert. Nonfocal. PSYCH: Appropriate mood and affect. Results - Labs CBC & Chem 7: 11/06/17 09:30 11/06/17 09:30 Assessment and Plan - Assessment (1) Intractable right upper quadrant abdominal pain Code(s): R10.11 - Right upper quadrant pain Status: Acute (2) Biliary dyskinesia Code(s): K82.8 - Other specified diseases of gallbladder Status: Acute - Plan 22 year old female with no significant PMH admitted 11/02 for intractable RUQ abdominal pain. 11/08: Going for cholecystectomy today 1. Biliary dyskinesia - CT A/P with tiny left nonobstructing renal stone, prominent stool in the colon , and small amount of free fluid within the pelvis, otherwise negative for acute process - GB U/S negative (no stones, wall thickening, pericolic fluid) - LFTs and lipase WNL - HIDA with EF 55% but exact pain is reproducible with administration of CCK - GS consulted given reproducible pain with CCK on HIDA. Going for elective cholecystectomy today - IV fluids - NPO for surgery - Pain control, requiring IV Dilaudid 2. Hematuria - Microscopic hematuria on U/A - Negative for UTI - Small stone on CT A/P - Negative GC/chlamydia - Will need f/u U/A as outpatient to ensure resolution 3. Erosive gastritis - S/P EGD 11/06 - Likely secondary to vomiting - Continue PPI - GI has signed off, recommend f/u as outpatient 4. Positive SHANNA - SHANNA screen positive - Unsure if this is significant at this time - Titer and pattern pending - RF negative DVT prophylaxis: SCDs Discharge Planning: Tolerates p.o. intake. Pain is fairly controlled. Possible discharge later today or tomorrow if pain improves per surgery. Discussed with the patient, patient's mother, nurse.
--- NOTE | 2017-11-09 14:18 | P.PNGS ---
Subjective Interval history: Painful; Rosetta OWEN gave two [place]; tolerated dinner Physical Exam Vital signs: Vital Signs 11/08/17 19:03 11/08/17 19:15 11/08/17 19:30 Temperature 98.5 F Pulse Rate 80 53 L 51 L Respiratory Rate 14 16 19 Blood Pressure 122/77 118/73 117/71 Pulse Oximetry 100 100 100 11/08/17 19:45 11/08/17 20:00 11/08/17 20:15 Temperature 98.7 F Pulse Rate 55 L 57 L 53 L Respiratory Rate 16 16 16 Blood Pressure 109/67 116/71 107/61 Pulse Oximetry 100 99 100 11/08/17 20:37 11/08/17 21:55 11/08/17 23:45 Temperature 98.9 F 98.6 F Pulse Rate 62 75 Respiratory Rate 23 20 Blood Pressure 121/63 115/66 Pulse Oximetry 100 100 100 11/09/17 04:10 11/09/17 12:55 Temperature 98.4 F 97.5 F L Pulse Rate 62 69 Respiratory Rate 18 20 Blood Pressure 104/61 Pulse Oximetry 98 100 Intake & Output 11/08/17 11/09/17 11/09/17 18:59 06:59 18:59 Intake Total 1700 / 1700 2962 / 2962 Output Total 10 10 0 / 0 Balance 1690 / 1690 2962 / 2962 Intake: IV 1000 / 1000 2200 / 2200 NS Inj 1,000 ML @ 125 mls/hr IV 1000 / 1000 2000 / 1999 .CONT .Q8H [facility] Rx#:[id number] Cipro 400 MG/200 ML Inj 400 mg 200 / 200 In 200 ml @ 0 mls/hr IV.SIG . STK-MED ONE Rx#:[id number] Oral 450 / 450 Anesthesia Amount 700 / 700 Other 312 / 312 Output: Urine 0 / 0 Estimated Blood Loss 10 Other: Other Intake Source Saline Solution # Voids 5 5 Narrative: Alert and awake Abd: inc c/d/i with skin glue; soft; tender Assessment and Plan - Assessment (1) Biliary dyskinesia Code(s): K82.8 - Other specified diseases of gallbladder Status: Acute Plan: 22 year old female POD1 lap valentin -Tolerating regular diet -Pain control -OOB -DC IVF -Discussed with BRAYDEN Sargent--- okay to DC home when pain controlled using oral pain pills -Rx on chart -Follow up with Dr. Lr Nov 24 at 3:40PM - Attending Attestation The exam, history, and the medical decision-making described in the above note were completed with the assistance of the mid-level provider. I reviewed and agree with the findings presented. I attest that I had a [id number] encounter with the patient on the same day, and personally performed and documented my assessment and findings in the medical record. 22yo female s/p lap valentin, pain better, no signs of complications DC home once postop pain controlled on oral meds
[2017-11-10 04:22] VITALS: O2SAT 99
[2017-11-10] MEDS: Senna/Docusate Sodium 8.6/50 MG Tablet PO SCH (08:31)
--- NOTE | 2017-11-10 08:33 | P.PNIM ---
Subjective Interval history: 22-year-old female postop day #2 for laparoscopic cholecystectomy secondary to biliary dyskinesia. She is tolerating food well, pain is adequately controlled with 2 [place] every 4 hours. She denies any nausea or vomiting. She is passing gas but has not had a significant bowel movement, keeping in mind that she did not eat for at least 3 days prior to the surgery. Physical Exam Vital signs: Vital Signs 11/09/17 08:35 11/09/17 12:55 11/09/17 16:00 Temperature 97.6 F 97.5 F L 97.5 F L Pulse Rate 52 L 69 52 L Respiratory Rate 18 20 24 Blood Pressure 121/76 Pulse Oximetry 100 100 100 11/09/17 20:00 11/10/17 00:30 11/10/17 04:00 Temperature 97.9 F 97.9 F 98 F Pulse Rate 65 71 69 Respiratory Rate 24 20 22 Blood Pressure 116/55 L Pulse Oximetry 100 100 99 Intake & Output 11/09/17 11/10/17 11/10/17 18:59 06:59 18:59 Intake Total 600 / 600 720 / 720 Balance 600 / 600 720 / 720 Intake: Oral 600 / 600 720 / 720 Other: # Voids 3 2 Date of Last Bowel Movement 11/07/17 Narrative: GENERAL: AAOx3, improving abdominal pain SKIN: Warm and dry. No rashes HEAD: Atruamtic, normocephalic. EYES: No scleral icterus. No injection or drainage. ENT: Moist mucous membranes, patent nares, no erythema of oropharynx. NECK: Supple, trachea midline. No JVD or lymphadenopathy. Normal thyroid. CARDIOVASCULAR: Regular rate and rhythm. No murmurs, gallops, or rubs. RESPIRATORY: Breath sounds clear equal bilaterally. No crackles or wheezes. No accessory muscle use. GASTROINTESTINAL: Abdomen has diffuse postop tenderness to palpation but no guarding, nondistended, normal active bowel sounds MUSCULOSKELETAL: No cyanosis, or edema. NEURO: CN II-XII grossly intact, no focal deficits, no slurring of speech Results - Labs CBC & Chem 7: 11/06/17 09:30 11/06/17 09:30 Laboratory Results - last 24 hr 11/04/17 11/06/17 10:35 16:20 Stool H. pylori Ag Not detected SHANNA Titer 1:80 H SHANNA Pattern Diffuse H SHANNA Interpretation - Procedures s/p cholecystectomy 11/08/[address] Lr gen surg Assessment and Plan - Plan 22F admitted 11/02 for intractable RUQ abdominal pain, diagnosed biliary dyskinesia, laparoscopic cholecystectomy 11/08. Biliary dyskinesia CT A/P with tiny left nonobstructing renal stone, prominent stool in the colon, and small amount of free fluid within the pelvis GB U/S negative LFTs and lipase WNL HIDA with EF 55% but exact pain is reproducible with administration of CCK GS consulted given reproducible pain with CCK on HIDA. Pain controlled on 10 mg of [place] p.o. every 4 hours Hematuria Resolved Erosive gastritis S/P EGD 11/06 Likely secondary to vomiting Continue PPI GI recommended outpatient follow-up Positive SHANNA SHANNA screen positive, but at a time of abdominal distress Rheumatoid factor negative Repeat labs as outpatient Discharge planning Patient tolerating p.o., passing gas, pain controlled with oral meds. Cleared for discharge
[2017-11-10] MEDS: Polyethylene Glycol 3350 17 GM Packet PO SCH (09:00)
--- NOTE | 2017-11-10 15:21 | P.PNGS ---
Subjective Interval history: Resting in bed; feeling better Physical Exam Vital signs: Vital Signs 11/09/17 16:00 11/09/17 20:00 11/10/17 00:30 Temperature 97.5 F L 97.9 F 97.9 F Pulse Rate 52 L 65 71 Respiratory Rate 24 24 20 Blood Pressure 116/55 L Pulse Oximetry 100 100 100 11/10/17 04:00 11/10/17 08:00 Temperature 98 F Pulse Rate 69 62 Respiratory Rate 22 18 Blood Pressure 116/72 Pulse Oximetry 99 Intake & Output 11/09/17 11/10/17 11/10/17 18:59 06:59 18:59 Intake Total 600 / 600 720 / 720 Balance 600 / 600 720 / 720 Intake: Oral 600 / 600 720 / 720 Other: # Voids 3 2 Date of Last Bowel Movement 11/07/17 Narrative: Alert and awake Abd: lap sites c/d/i with skin glue in place Assessment and Plan - Assessment (1) Biliary dyskinesia Code(s): K82.8 - Other specified diseases of gallbladder Status: Acute Plan: 22 year old female POD2 lap valentin -Tolerating regular diet -Pain control -OOB -Okay to HI home when pain controlled using oral pain pills -Rx on chart -Follow up with Dr. Lr Nov 24 at 3:40PM
[2017-11-10 17:31] VITALS: BP 110/66; PULSE 69; RESP 16; TEMP 98
== END 2017-11-10 17:31 | disposition home or self-care (01) ==
LOC: NEDA 13:01 → NEPC 13:01 → NEDH 11-03 05:47 → H6YA 11-03 07:44 → NEDH 11-03 07:47
PROVIDERS: ADMIT Family Medicine; ATTEND Family Medicine
PROC: PANENDO (2017-11-06 12:52)